=== PATIENT | female | born 1950 | race Caucasian/White ===

== ENCOUNTER 2020-01-31 11:16 | Inpatient (IN) | payer MEDICARE, SELFPAY ==
[2020-01-31] VITALS (14 sets, daily range): BP systolic 97–120; BP diastolic 50–88; PULSE 61–120; RESP 16–18; TEMP 36.4–37.2; O2SAT 90–100; BMI 33.9; BMI 31.4
--- NOTE | 2020-01-31 11:37 | EKG12_ITS ---
Test Reason : AM Blood Pressure : / mmHG Vent. Rate : 073 BPM Atrial Rate : 073 BPM P-R Int : 164 ms QRS Dur : 094 ms QT Int : 388 ms P-R-T Axes : 058 -26 054 degrees QTc Int : 427 ms Normal sinus rhythm Low voltage QRS Borderline ECG When compared with ECG of 31-JAN-2020 11:33, MANUAL COMPARISON REQUIRED, DATA IS UNCONFIRMED Confirmed by YAEL BLEVINS ([id number]), medical transcription editor GIO CARMEN ([id number]) on 02/02/2020 8:00:59 AM Referred By: Talita Humphreys Confirmed By:YAEL BLEVINS
--- NOTE | 2020-01-31 11:37 | RAD_ITS ---
STUDY: X-RAY CHEST REASON FOR EXAM: Female, 68 years old. SOB, GLEZ, sore throat TECHNIQUE: Single AP portable view of the chest. COMPARISON: None. FINDINGS: EKG electrodes are seen. The lungs are clear and expanded. There is no demonstrated pleural abnormality. Normal size heart. Normal mediastinum and morelia. Normal visualized pulmonary arteries. There is atherosclerotic tortuosity of the aortic arch and descending thoracic aorta. Normal visualized thoracic spine. Normal visualized ribs, clavicles, and shoulders. There is no demonstrated abnormality of the visualized soft tissue structures of the upper abdomen. RAD/Chest 1 View (Portable) IMPRESSION: No acute abnormality is seen. Electronically Signed: Isac Taveras, at 12:33 EDT , Service support ,
--- NOTE | 2020-01-31 11:43 | ED.VISSUMM ---
- ER Visit Summary Date of Service: 01/31/20 Chief Complaint: Fatigue and chest pain History of Present Illness: The patient is a 68 F who presents with fatigue and chest pain that has been constant for the past 5 days. Patient states that she has been feeling fatigued over the last 5 days but is starting to feel better. Patient states she was too fatigued to come to the emergency department before today. Patient states she has some intermittent sharp and stabbing pains over her left chest. Patient states that occasionally she feels her heart racing but denies any palpitations or racing heart at the present time. Patient states nothing makes this better or worse. Patient admits to subjective fevers but states her temperature was only 99 at home. Patient also complains of a generalized rash. Physical Examination: Vital signs are stable. Patient is afebrile. Patient is in no acute distress. Oral mucosa is pink and moist. Neck is supple. Trachea is midline. There is no JVD. Heart was irregularly irregular and tachycardic. Lungs are clear and equal bilaterally. Abdomen is soft. Bowel sounds are normal. There is no tenderness. Cranial nerves II through XII are intact. There are no focal motor or sensory deficits. Extremities are intact. There is no calf tenderness or edema. Skin is warm and dry. There is urticarial rash noted over the chest, abdomen, and lower extremities. Test Results: EKG shows atrial fibrillation with a rate of 148. There are no acute ST or T wave changes. There are no prior EKGs available for comparison. Portable chest x-ray was obtained. There is no acute cardiopulmonary process. CBC showed a white blood cell count of 3.9. Basic metabolic profile showed a mild hyponatremia of 133 and a slightly elevated glucose of 110. Urinalysis shows leukocyte Estrace of 500 with 25-50 white blood cells. Troponin was slightly elevated at 0.059. Emergency Department Course and Treatment: Patient was given a bolus of Cardizem and her heart rate improved to the 110s. Patient was given a dose of Bactrim here. Patient was given a dose of Benadryl for her hives. Case was discussed with the hospitalist. She will admit the patient to her service to the PCU. Patient understood and was agreeable with the plan. All questions were answered. Disposition: Admit to hospital Impression: 1. New onset atrial fibrillation 2. Urinary tract infection 3. Elevated troponin This note was generated with Motribe dictation software. It may contain incorrect words, spelling, and punctuation that were not noted in review of the chart prior to signing ED Disposition - Plan for ED Patient: Disposition: Acute Care Hospital [facility] Diagnosis: New onset atrial fibrillation, Elevated troponin, Urinary tract infection Referrals: Genoveva Martell [NON-STAFF] -
[2020-01-31] MEDS: dilTIAZem 25 MG/5 ML Vial IV BOLUS (11:47)
[2020-01-31] MEDS: 0.9% Normal Saline 1,000 ML 1000 ML IV (11:48)
[2020-01-31 12:01] LABS: Absolute Lymphocyte Count 0.62 X10^3/uL (0.83-4.51); Absolute Neutrophil Count 2.8 X10^3/uL (2.0-7.7); Basophil# 0.01 X10^3/uL; Basophil% 0.3 % (0-1); Eosinophil# 0.12 X10^3/uL; Eosinophils% 3.1 % (0-5); Hematocrit 38.7 % (37-47); Hemoglobin 12.9 g/dL (12.0-15.0); Lymphocyte # 0.62 X10^3/ul (4.0); Lymphocyte % 15.9 % (19-41); Mean Corp Hgb Conc 33.3 g/dL (32-36); Mean Corpuscular Hgb 27.9 pg (27.0-32.0); Mean Corpuscular Volume 83.6 fL (81-99); Mean Platelet Vol. 9.8 fl (6.2-12.0); Monocyte% 7.7 % (0-10); NRBC Flagged by Analyzer 0 % (0-5); Neutrophil # 2.79 X10^3/uL (2.7-7.7); Neutrophil % 71.7 % (47-70); POSITIVE MORPHOLOGY YES; Platelet Count 163 K/mm3 (150-450); RBC Distribution Width CV 13.7 % (11.6-14.6); RBC Distribution Width SD 41.9 fl (35.1-43.9); Red Blood Count 4.63 M/mm3 (4.2-5.4); White Blood Count 3.9 K/mm3 (4.4-11.0)
[2020-01-31 12:09] LABS: Differential Indicated SCAN CRITERIA MET
[2020-01-31 12:17] LABS: ALB/GLOB Ratio 0.8 RATIO (0.9-2.4); AST(SGOT) 43 U/L (15-37); Alanine Aminotransfer ALT/SGPT 64 U/L (13-56); Albumin, Serum 3.2 g/dL (3.2-5.0); Alkaline Phosphatase 67 U/L (45-117); Anion Gap 9 (5-15); BUN 13 mg/dL (7-18); BUN/Creat Ratio 18.3 RATIO (10-20); Calcium,Total 8.2 mg/dL (8.5-10.1); Chloride 100 mmol/L (98-107); Creatinine, Serum 0.71 mg/dL (0.55-1.02); EST Glomerular Filtration Rate 87 mL/min (>60); Est Glom Filt Rate - Afr Amer 105 mL/min (>60); Estimated Creatinine Clearance 51.11 ml/min; Globulin 3.9 g/dL (2.2-4.2); Glucose 110 mg/dL (74-106); Potassium 3.8 mmol/L (3.5-5.1); Protein, Total 7.1 g/dL (6.4-8.2); Sodium Level 133 mmol/L (136-145)
[2020-01-31 12:38] LABS: Reactive Lymphocyte 1+
[2020-01-31 12:56] LABS: Color, Urine Yellow (Yellow); Glucose, Dipstick Normal (Normal); Leukocyte Esterase-Dipstick 500 /ul (Negative); Nitrite-Dipstick Negative (Negative); Occult Blood-Urine 25 /ul (Negative); Protein-Dipstick 100 mg/dl (Negative); Specific Gravity, Urine 1.015 (1.002-1.030); Urine Bilirubin Dipstick Negative (Negative); Urine Clarity Sl. Cloudy (Clear); Urine Urobilinogen 1 mg/dl (Normal)
[2020-01-31 12:58] LABS: Ketone-Dipstick 150 mg/dl (Negative)
[2020-01-31 13:01] LABS: Bacteria 2+ /hpf (None Seen); Red Blood Cells-Urine 0-5 SEEN /hpf (0-5); Squamous Epithelial Cells - UA 0-5 SEEN /hpf (5-10); White Blood Cells 25-50 SEEN /hpf (0-5)
[2020-01-31 13:02] LABS: Mucous, Urine 1+ /hpf (<or=2+)
--- NOTE | 2020-01-31 13:36 | HP.PCM_ITS ---
Problem List (1) Urinary tract infection Status: Acute (2) Atrial fibrillation with RVR Status: Acute (3) Depression Status: Chronic (4) HLD (hyperlipidemia) Status: Chronic History of Present Illness Date of Admission: 01/31/20 Chief Complaint: malaise The patient is a 68 year old F with pmhx of HLD and depression who presented to the ER with several complaints of feeling unwell. She began to feel ill at home about 5 days ago. She has been having subjective fevers, nausea, vomiting, inability to tolerate PO intake, cough, sharp left sided chest pain, SOB, and palpitations. She denies recent travel or sick contacts. She came to the ER and was found to have Afib RVR. She denies ever having this. She also appears to have a UTI however does not have dysuria. She has a generalized nonpruritic maculopapular rash on her torso and extremities that she states started after taking tylenol. She was given cardizem in the ER with good improvement in her pulse however with temporary low BP. On exam she is fluctuating between 110s- 120s. 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 Tobacco Use: Non-smoker Alcohol: None Drugs: None - *Family History Maternal History Items: Heart Disease Paternal History Items: Heart Disease Review of Systems Constitutional: Denies: Chills, Fever, Weight Change HEENT: Denies: Head Aches, Sinus Congestion, Sinus Drainage Cardiovascular: Reports: Chest Pain, Palpitations. Denies: Heaviness, Light Headedness, Syncope Respiratory: Reports: Cough, Shortness of Breath, Shortness of breath at rest, Shortness of breath upon exertion. Denies: Sputum production, Wheezing Gastrointestinal: Reports: Diarrhea, Nausea, Vomiting. Denies: Abdominal Pain Genitourinary: Denies: Dysuria, Retention, Urgency Musculoskeletal: Denies: Joint Pain, Joint Tenderness Skin: Denies: Rash, Wounds Neurological: Denies: Numbness, Tingling, Focal weakness Psychiatric: Denies: Anxiety, Depression, Homicidal Ideations, Suicidal Ideations Hematologic/ Lymphatic: Denies: Easy Bruising, Easy Bleeding VTE Information - Inpt Only VTE Present on Admission: No VTE Mechan Device Prophylaxis: None VTE Pharm Prophylaxis ordered?: Yes Patient Problems: Active and Suspected Problems New onset atrial fibrillation (Acute) Elevated troponin (Acute) Urinary tract infection (Acute) Atrial fibrillation with RVR (Acute) - Physical Exam Vitals/I&O's: Vital Signs Temp Pulse Resp BP Pulse Ox 98 F 120 H 18 104/70 100 01/31/20 13:06 01/31/20 13:16 01/31/20 13:16 01/31/20 13:16 01/31/20 13:16 Oxygen Flow Rate (L/min) 2 Oxygen Delivery Method Room Air Weight: 210 lb Body Mass Index (BMI) 33.9 Intake and Output for Last 24 Hours 01/29/20 01/30/20 01/31/20 23:59 23:59 23:59 Intake Total 1000 / 1000 Balance 1000 / 1000 General: Alert, Oriented x3, Cooperative HEENT: Atraumatic, PERRLA, EOMI, Normocephalic Neck: Supple, No JVD, Negative Carotid Bruits Lungs: Clear to auscultation, Normal air movement Cardiovascular: Regular rate, No murmurs Abdomen: Bowel Sounds Present, Soft, Non Tender Extremities: No edema, Capillary Refill Less than 3 Seconds Skin: No rashes, No breakdown Musculoskeletal: No Tenderness to Palpation of Joints or Extremities Neurological: Cranial nerves II-XII grossly intact Psych/Mental Status: Normal Affect, Appropriate, Alert and oriented to time, place, person, mood and affect Microbiology Past 72 Hours 01/31/20 11:40 Mucosa - Nose Influenza Types A,B Direct FA (BRANDIE) - Final 01/31/20 11:40 Mucosa - Nose Rapid RSV (DFA) - Final Laboratory Results 01/31/20 11:40: WBC 3.9 L, RBC 4.63, Hgb 12.9, Hct 38.7, MCV 83.6, MCH 27.9, MCHC 33.3, RDW Std Deviation 41.9, RDW Coeff of Kesha 13.7, Plt Count 163, MPV 9.8, Immature Gran % (Auto) 1.300 H, Neut % (Auto) 71.7 H, Lymph % (Auto) 15.9 L , [place] % (Auto) 7.7, Eos % (Auto) 3.1, Baso % (Auto) 0.3, Absolute Neuts (auto) 2.8, Absolute Lymphs (auto) 0.62 L, Nucleated RBC % 0, Reactive Lymphocytes 1+ 01/31/20 11:40: Sodium 133 L, Potassium 3.8, Chloride 100, Carbon Dioxide 24.0, Anion Gap 9, BUN 13, Creatinine 0.71, Estim Creat Clear Calc 51.11, Est GFR (MDRD) Af Amer 105, Est GFR (MDRD) Non-Af 87, BUN/Creatinine Ratio 18.3, Glucose 110 H, Calcium 8.2 L, Total Bilirubin 0.40, AST 43 H, ALT 64 H, Alkaline Phosphatase 67, Troponin I 0.059 H, Total Protein 7.1, Albumin 3.2, Globulin 3.9, Albumin/Globulin Ratio 0.8 L 01/31/20 12:45: Urine Color Yellow, Urine Clarity Sl. Cloudy, Urine pH 6.0, Ur Specific [place] 1.015, Urine Protein 100 H, Urine Glucose (UA) Normal, Urine Ketones 150 H, Urine Occult Blood 25 H, Urine Nitrite Negative, Urine Bilirubin Negative, Urine Urobilinogen 1 H, Ur Leukocyte Esterase 500 H, Urine RBC 0-5 SEEN, Urine WBC 25-50 SEEN, Ur Squamous Epith Cells 0-5 SEEN, Urine Bacteria 2+, Urine Mucus 1+ Assessment/Plan All Active Problems New onset atrial fibrillation (Acute) Elevated troponin (Acute) Urinary tract infection (Acute) Atrial fibrillation with RVR (Acute) Distal radius fracture, left (Acute) 1. Acute cystitis - rocephin. no fever/leukocytosis. Left shift is present. obtain cx. Flu/rsv neg. CXR negative. 2. Afib RVR new onset - cardizem x 1 in er. start metoprolol. chadvasc2 = 2 female, age. started on therapeutic lovenox. 3. indeterminate trop - cycle. repeat ekg in AM. consider stress test. 4. HLD- statin 5. obesity - dietary eval. 6. Depression/Anxiety - pristiq 7. Maculopapular rash - ? viral exanthem, she has complaints of cough/sob/subjective fevers. pt thinks it is reaction to tylenol however she has been on this in the past with no issues. prn benadryl to see if this helps. 8. Transaminitis - has been using tylenol q4hrs, may be reaction. recheck cmp in AM. hold acetaminophen. DVT ppx: lovenox This patient was seen by Ector Lindsey PA-C under the supervision of Dr. Humphreys.
[2020-01-31] MEDS: DiphenhydrAMINE 50 MG/ML Syringe 25 MG IV (13:44)
[2020-01-31] MEDS: Smz/Tmp Ds Tablet 1 TABLET PO (13:44)
--- NOTE | 2020-01-31 16:39 | ECHOD_ITS ---
Reason For Study: AFIB/FLUTTER Procedure This was a 2D Doppler, Color Flow transthoracic echocardiogram. Exam performed in department. PT in COVID-19 PRECAUTIONS. Left Ventricle Normal size and thickness. The estimated ejection fraction is 65 %. Stage 2 diastolic dysfunction. No regional wall motion abnormalities noted. Right Ventricle Mildly dilated right ventricle. Normal systolic function. Atria The left atrium is moderately enlarged. Normal right atrium. Normal atrial septum. Mitral Valve The mitral valve is structurally normal. No prolapse or stenosis seen. Trivial mitral valve insufficiency. Tricuspid Valve Normal tricuspid valve. Trivial tricuspid valve insufficiency. Right ventricular systolic pressure estimated to be 32 mmHg. Aortic Valve Normal aortic valve. Trisinus/trileaflet aortic valve. Pulmonic Valve Normal pulmonic valve. Great Vessels Normal aortic root. Normal arch. Normal inferior vena cava. Inferior vena cava collapse with sniff. Pericardium/Pleural No pericardial effusion. MMode/2D Measurements & Calculations LVIDd: 4.9 cm IVSd: 1.1 cm Ao root diam: 3.1 cm LVIDs: 3.4 cm LVPWd: 1.1 cm RVDd: 3.7 cm FS: 31.5 % LAV(MOD-bp): 99.5 ml LA A4 area: 27.9 cm2 LA dimension(2D): 4.2 cm LAV(MOD-bp) Indexed: 48.5 ml/m2 LAV(MOD-sp2): 94.0 ml LAV(MOD-sp4): 96.3 ml RA A4 area: 18.1 cm2 Time Measurements MV dec time: 0.18 sec Doppler Measurements & Calculations MV E max eloy: 128.7 cm/sec Lat Peak E' Eloy: 8.0 cm/sec Med Peak E' Eloy: 8.4 cm/sec MV A max eloy: 64.5 cm/sec E/E' lat: 16.1 E/E' med: 15.3 MV E/A: 2.0 Ao V2 max: 141.3 cm/sec LV V1 max: 100.7 cm/sec PA V2 max: 93.5 cm/sec Ao max P.0 mmHg LV V1 max P.1 mmHg Ao V2 mean: 96.2 cm/sec Ao mean P.1 mmHg Ao V2 VTI: 26.1 cm TR max eloy: 257.4 cm/sec TR max P.5 mmHg Interpretation Summary The estimated ejection fraction is 65 %. Stage 2 diastolic dysfunction. Mildly dilated right ventricle. The left atrium is moderately enlarged. Trivial mitral valve insufficiency. Trivial tricuspid valve insufficiency. Right ventricular systolic pressure estimated to be 32 mmHg. There is no comparison study available. Ordering Physician: Taltia Humphreys Referring Physician: Paola Frazier Performed By: Sole Henry, LITA, RVT
[2020-01-31 17:15] LABS: Magnesium 1.9 mg/dL (1.6-2.6); Thyroid Stim Hormone (TSH) 3.19 uIU/mL (0.358-3.74)
[2020-01-31] MEDS: Ceftriaxone 1 GM/50 ML BAG IV (17:49)
[2020-01-31] MEDS: 0.9% Normal Saline 1,000 ML 125 ML IV (17:49)
[2020-01-31] MEDS: 0.9% Saline Lock 10 ML Syringe IV (17:51)
[2020-01-31] MEDS: Enoxaparin 100 MG/ML Syringe SC (17:51)
[2020-01-31] MEDS: Metoprolol Tartrate 25 MG Tablet PO ×2 (17:56→21:45)
[2020-01-31] MEDS: Atorvastatin Calcium 20 MG Tablet PO (21:45)
[2020-02-01] VITALS (11 sets, daily range): BP systolic 93–145; BP diastolic 42–71; PULSE 73–88; RESP 16–18; TEMP 36.6–37.4; O2SAT 92–96
[2020-02-01] MEDS: 0.9% Normal Saline 1,000 ML 125 ML IV ×3 (02:01→17:20)
--- NOTE | 2020-02-01 05:55 | EKG12_ITS ---
Test Reason : Blood Pressure : / mmHG Vent. Rate : 148 BPM Atrial Rate : 133 BPM P-R Int : 000 ms QRS Dur : 070 ms QT Int : 304 ms P-R-T Axes : 000 -42 020 degrees QTc Int : 477 ms Atrial fibrillation Left axis deviation Low voltage QRS Nonspecific ST and T wave abnormality Abnormal ECG Confirmed by FLY PERKINS, HARRIETT ([id number]), production editor ALYSSA MOJICA ([id number]) on 02/02/2020 1:32:00 PM Referred By: Talita Humphreys Confirmed By:HARRIETT BILL MD
[2020-02-01 06:39] LABS: Absolute Lymphocyte Count 0.72 X10^3/uL (0.83-4.51); Absolute Neutrophil Count 1.3 X10^3/uL (2.0-7.7); Basophil# 0.01 X10^3/uL; Basophil% 0.4 % (0-1); Eosinophil# 0.16 X10^3/uL; Eosinophils% 6.5 % (0-5); Hematocrit 32.3 % (37-47); Hemoglobin 10.8 g/dL (12.0-15.0); Lymphocyte # 0.72 X10^3/ul (4.0); Mean Corp Hgb Conc 33.4 g/dL (32-36); Mean Corpuscular Hgb 28.7 pg (27.0-32.0); Mean Corpuscular Volume 85.9 fL (81-99); Mean Platelet Vol. 9.9 fl (6.2-12.0); Monocyte# 0.32 X10^3/uL; Monocyte% 12.9 % (0-10); NRBC Flagged by Analyzer 0 % (0-5); Neutrophil # 1.25 X10^3/uL (2.7-7.7); Neutrophil % 50.4 % (47-70); POSITIVE MORPHOLOGY YES; Platelet Count 141 K/mm3 (150-450); RBC Distribution Width CV 13.7 % (11.6-14.6); RBC Distribution Width SD 43.3 fl (35.1-43.9); Red Blood Count 3.76 M/mm3 (4.2-5.4); White Blood Count 2.5 K/mm3 (4.4-11.0)
[2020-02-01 06:43] LABS: Differential Indicated SCAN CRITERIA MET
[2020-02-01 06:57] LABS: Differential Comment SCANNED
[2020-02-01 06:58] LABS: Platelet Estimate SLT DEC (ADEQ); Reactive Lymphocyte RARE
[2020-02-01 07:11] LABS: ALB/GLOB Ratio 0.7 RATIO (0.9-2.4); AST(SGOT) 35 U/L (15-37); Alanine Aminotransfer ALT/SGPT 53 U/L (13-56); Albumin, Serum 2.5 g/dL (3.2-5.0); Alkaline Phosphatase 57 U/L (45-117); Anion Gap 8 (5-15); BUN 9 mg/dL (7-18); BUN/Creat Ratio 14.7 RATIO (10-20); Calcium,Total 7.7 mg/dL (8.5-10.1); Chloride 106 mmol/L (98-107); Cholesterol 121 mg/dL (200); Creatinine, Serum 0.61 mg/dL (0.55-1.02); EST Glomerular Filtration Rate 103 mL/min (>60); Est Glom Filt Rate - Afr Amer 125 mL/min (>60); Estimated Creatinine Clearance 57.05 ml/min; Globulin 3.4 g/dL (2.2-4.2); Glucose 95 mg/dL (74-106); High Density Lipoprotein 23 mg/dL; Potassium 3.5 mmol/L (3.5-5.1); Protein, Total 5.9 g/dL (6.4-8.2); Sodium Level 138 mmol/L (136-145); Triglycerides 104 mg/dL; Very Low Density Lipoprotein 21 mg/dL (5-40)
--- NOTE | 2020-02-01 07:38 | PN_ITS ---
Patient Problems: Active and Suspected Problems New onset atrial fibrillation (Acute) Elevated troponin (Acute) Urinary tract infection (Acute) Atrial fibrillation with RVR (Acute) Reason for Visit: acute viral syndrome cystitis Subjective: Patient is a 68-year-old lady presented with generalized weakness, cough low- grade fever and fatigue over the past couple of days. She was found to have abnormal urinalysis consistent with cystitis. Was also found to be in A. fib with RVR with elevated troponin Patient complains of having developed new onset cough and difficulty breathing and feeling tired. Repeat chest x-ray ordered and if suggestive of possible viral pneumonia will reorder echo with test which was apparently discontinued Objective: GENERAL: cooperative HEENT: Atraumatic; EYES; Anicteric, Normal Conjunctiva NECK; supple, normal thyroid, RESPIRATORY: Diminished to auscultation CARDIOVASCULAR: Regular S1 S2, GI: soft, normoactive bowel sounds, : No Renal angle tenderness; EXTREMITIES: No edema, no clubbing, MUSCULOSKELETAL: no muscle waisting NEURO: Awake; no lateralizing signs. SKIN: No Rash PSYCH; Flat affect Vitals/I&O's: Vital Signs Temp Pulse Resp BP Pulse Ox 98.8 F 73 16 102/57 L 95 02/01/20 05:35 02/01/20 05:35 02/01/20 05:35 02/01/20 05:35 02/01/20 05:35 Oxygen Flow Rate (L/min) 2 Oxygen Delivery Method Nasal Cannula Weight: 96.6 kg Body Mass Index (BMI) 31.4 Intake and Output for Last 24 Hours 01/30/20 01/31/20 02/01/20 23:59 23:59 23:59 Intake Total 1410 / 2210 1762.5 / 1762.5 Output Total 100 / 100 Balance 1310 / 2110 1762.5 / 1762.5 Microbiology Past 72 Hours 01/31/20 17:41 Mucosa - Nasopharyngeal Respiratory Panel (PCR) - Final 01/31/20 11:40 Mucosa - Nose Influenza Types A,B Direct FA (BRANDIE) - Final 01/31/20 11:40 Mucosa - Nose Rapid RSV (DFA) - Final Laboratory Results 01/31/20 11:40: WBC 3.9 L, RBC 4.63, Hgb 12.9, Hct 38.7, MCV 83.6, MCH 27.9, MCHC 33.3, RDW Std Deviation 41.9, RDW Coeff of Kesha 13.7, Plt Count 163, MPV 9.8, Immature Gran % (Auto) 1.300 H, Neut % (Auto) 71.7 H, Lymph % (Auto) 15.9 L , [place] % (Auto) 7.7, Eos % (Auto) 3.1, Baso % (Auto) 0.3, Absolute Neuts (auto) 2.8, Absolute Lymphs (auto) 0.62 L, Nucleated RBC % 0, Reactive Lymphocytes 1+ 01/31/20 11:40: Sodium 133 L, Potassium 3.8, Chloride 100, Carbon Dioxide 24.0, Anion Gap 9, BUN 13, Creatinine 0.71, Estim Creat Clear Calc 51.11, Est GFR (MDRD) Af Amer 105, Est GFR (MDRD) Non-Af 87, BUN/Creatinine Ratio 18.3, Glucose 110 H, Calcium 8.2 L, Total Bilirubin 0.40, AST 43 H, ALT 64 H, Alkaline Phosphatase 67, Troponin I 0.059 H, Total Protein 7.1, Albumin 3.2, Globulin 3.9, Albumin/Globulin Ratio 0.8 L 01/31/20 11:40: Magnesium 1.9, TSH 3.19 01/31/20 12:45: Urine Color Yellow, Urine Clarity Sl. Cloudy, Urine pH 6.0, Ur Specific [place] 1.015, Urine Protein 100 H, Urine Glucose (UA) Normal, Urine Ketones 150 H, Urine Occult Blood 25 H, Urine Nitrite Negative, Urine Bilirubin Negative, Urine Urobilinogen 1 H, Ur Leukocyte Esterase 500 H, Urine RBC 0-5 SEEN, Urine WBC 25-50 SEEN, Ur Squamous Epith Cells 0-5 SEEN, Urine Bacteria 2+, Urine Mucus 1+ 01/31/20 18:55: Troponin I 0.061 H 01/31/20 21:36: Troponin I 0.059 H 02/01/20 00:58: Troponin I 0.058 H 02/01/20 06:24: WBC 2.5 L, RBC 3.76 L, Hgb 10.8 L, Hct 32.3 L, MCV 85.9, MCH 28.7, MCHC 33.4, RDW Std Deviation 43.3, RDW Coeff of Kesha 13.7, Plt Count 141 L, MPV 9.9, Immature Gran % (Auto) 0.800, Neut % (Auto) 50.4, Lymph % (Auto) 29.0, [place] % (Auto) 12.9 H, Eos % (Auto) 6.5 H, Baso % (Auto) 0.4, Absolute Neuts (auto) 1.3 L, Absolute Lymphs (auto) 0.72 L, Nucleated RBC % 0, Differential Comment SCANNED, Reactive Lymphocytes RARE, Platelet Estimate SLT 02/01/20 06:24: Sodium 138, Potassium 3.5, Chloride 106, Carbon Dioxide 24.0, Anion Gap 8, BUN 9, Creatinine 0.61, Estim Creat Clear Calc 57.05, Est GFR (MDRD) Af Amer 125, Est GFR (MDRD) Non-Af 103, BUN/Creatinine Ratio 14.7, Glucose 95, Calcium 7.7 L, Total Bilirubin 0.30, AST 35, ALT 53, Alkaline Phosphatase 57, Total Protein 5.9 L, Albumin 2.5 L, Globulin 3.4, Albumin/Globulin Ratio 0.7 L, Triglycerides 104, Cholesterol 121, LDL Cholesterol 77, VLDL Cholesterol 21, HDL Cholesterol 23 L Current Medications Acetaminophen (Tylenol) 650 mg PO Q6H PRN PRN PRN Reason: Pain Score 1-10/Temp > 100.7 F Al Hydroxide/Mg Hydroxide (Mylanta Ii) 30 ml PO Q6H PRN PRN PRN Reason: Gastric Burning Albuterol Sulfate (Ventolin Aerosols) 2.5 mg INHALATION Q2H PRN PRN PRN Reason: SOB/Wheezing Atorvastatin Calcium (Lipitor) 20 mg PO QHS [facility] Last Admin: 01/31/20 21:45 Dose: 20 mg Documented by: Citalopram Hydrobromide (Celexa) 40 mg PO DAILY [facility] Dextrose (D50w Syringe) 0 gm IV X1 PRN; Protocol PRN Reason: Hypoglycemia Enoxaparin Sodium (Lovenox) 100 mg 1 mg/kg (100 mg) SC Q12 [facility] Last Admin: 01/31/20 17:51 Dose: 100 mg Documented by: Glucagon () 1 mg IM .X1 PRN PRN Reason: Hypoglycemia Guaifenesin (Robitussin) 20 ml PO Q4H PRN PRN PRN Reason: COUGH Hydralazine HCl (Apresoline Iv) 10 mg IV Q4H PRN PRN PRN Reason: SBP > 160 Sodium Chloride () 1,000 mls @ 125 mls/hr IV .Q8H [facility] Last Admin: 02/01/20 02:01 Dose: 125 mls/hr Documented by: Ceftriaxone Sodium (Rocephin) 1 gm in 50 mls @ 100 mls/hr IV Q24 [facility] Stop: 02/08/20 18:01 Last Infusion: 01/31/20 18:19 Dose: Infused Documented by: Sodium Chloride () 250 mls @ 15 mls/hr IV .[id number] PRN PRN Reason: Saline Flush Sodium Chloride () 250 mls @ 15 mls/hr IV .[id number] PRN PRN Reason: Additional IVPB Infusion Magnesium Hydroxide (Milk Of Magnesia) 30 ml PO DAILY PRN PRN PRN Reason: Constipation Melatonin (Melatonin) 3 mg PO QHS PRN PRN PRN Reason: INSOMNIA Metoprolol Tartrate (Lopressor (Beta Jeovany)) 25 mg PO BID [facility] Last Admin: 01/31/20 21:45 Dose: 25 mg Documented by: Morphine Sulfate () 2 mg IV Q3H PRN PRN PRN Reason: Pain Score 6-10/10 Nitroglycerin (Nitrostat) 0.4 mg SUBLINGUAL Q5M PRN PRN Reason: CARDIAC/CHEST PAIN Nutritional Formula (Lactose Free) (Ensure Enlive) 120 ml PO 4X/DAY [facility] Last Admin: 01/31/20 20:14 Dose: Not Given Documented by: Ondansetron HCl (Zofran) 4 mg IV Q8H PRN PRN PRN Reason: NAUSEA/VOMITING Oxycodone HCl (Oxyir) 5 mg PO Q4H PRN PRN PRN Reason: Pain Score 4-5/10 Prochlorperazine Edisylate (Compazine Iv) 5 mg IV Q4H PRN PRN PRN Reason: Breakthrough Nausea/Vomiting Psyllium Hydrophilic Mucilloid (Metamucil) 1 packet PO DAILY PRN PRN PRN Reason: Constipation Senna/Docusate Sodium (Senokot-S, Enedelia-Colace) 2 tablet PO BID PRN PRN PRN Reason: Constipation Sodium Chloride () 10 - 40 ml IV UD PRN PRN Reason: SALINE FLUSH Last Admin: 01/31/20 17:51 Dose: 10 ml Documented by: Throat Lozenges (Cepacol Sore Throat Lozenge) 1 lozenge MUCOUS MEM Q2H PRN PRN PRN Reason: SORE THROAT Venlafaxine HCl (Effexor Xr) 37.5 mg PO DAILY [facility] Vital Signs/Narrative: Vital Signs Temp Pulse Resp BP Pulse Ox 02/01/20 05:35 98.8 F 73 16 102/57 L 95 Medical Necessity - Tobacco Use Smoking Status: Former smoker Tobacco Use: Non-smoker Assessment/Plan All Active Problems New onset atrial fibrillation (Acute) Elevated troponin (Acute) Urinary tract infection (Acute) Atrial fibrillation with RVR (Acute) Distal radius fracture, left (Acute) Patient is a 68-year-old lady presented with generalized weakness, cough low- grade fever and fatigue over the past couple of days. She was found to have abnormal urinalysis consistent with cystitis. Was also found to be in A. fib with RVR with elevated troponin [facility]. Suspected acute viral syndrome ?Admitted to regular nursing floor currently undergoing evaluation for COVID-19 - Patient complains of having developed new onset cough and difficulty breathing and feeling tired. Repeat chest x-ray ordered and if suggestive of possible viral pneumonia will reorder echo with test which was apparently discontinued 2. Acute cystitis ?Patient started on Rocephin cultures sent 3. A. fib with RVR new onset. -Did receive Cardizem admitted to monitored bed. Patient was also noted to have elevated plan is for patient to undergo evaluation once medically stable 4. Dyslipidemia ~patient is on statin therapy, continued at home dose 5. Obesity with BMI of 31.4 ?Weight loss advised 6. Depression with anxiety ?Patient is on Pristiq 7. DVT prophylaxis - Lovenox Clinical Impression(s) from Imaging Studies Chest X-Ray 01/31/20 11:37 IMPRESSION: No acute abnormality is seen. Electronically Signed: Isac Taveras, at 12:33 EDT , Service support , Inpatient E&M: [id number] [facility] [[email or web address]] Hosp L2
[2020-02-01] MEDS: Ceftriaxone 1 GM/50 ML BAG IV (09:15)
[2020-02-01] MEDS: Citalopram 40 MG TABLET PO (09:19)
[2020-02-01] MEDS: Venlafaxine XR 37.5 MG Capsule PO (09:19)
[2020-02-01] MEDS: Enoxaparin 100 MG/ML Syringe SC ×2 (09:20→22:06)
--- NOTE | 2020-02-01 09:42 | CASEMGMT ---
Social Work Note Per pantograph operator questions, pt has completed HCPOA and LW, hasn't provided copies to [facility] and pt unable to bring in copies. Janette Hamilton HARNESS PULLER, BIOLOGICAL SCIENCE TECHNICIAN FISH
--- NOTE | 2020-02-01 10:24 | RAD_ITS ---
STUDY: X-RAY CHEST REASON FOR EXAM: Female, 68 years old. Covid precautions, cough, new onset of AFIB, TECHNIQUE: Single AP portable view of the chest. COMPARISON: Comparison is made with prior study dated January 31, 2020. FINDINGS: EKG electrodes are seen. Mild increased markings at the lung bases worse in the left lower lobe. These have progressed as compared to prior study. Follow-up is recommended. There is no demonstrated pleural abnormality. Normal size heart. Normal mediastinum and morelia. Normal visualized pulmonary arteries. Normal visualized aortic arch and descending thoracic aorta. There are mild degenerative changes of the visualized thoracic spine. Normal visualized ribs, clavicles, and shoulders. There is no demonstrated abnormality of the visualized soft tissue structures of the upper abdomen. RAD/Chest 1 View (Portable) IMPRESSION: Increased markings at the lung bases worse on the left side as compared to prior study. Follow-up is recommended. Electronically Signed: Isac Taveras, at 12:15 EDT , Service support ,
--- NOTE | 2020-02-01 16:03 | CASEMGMT ---
RN CM Assessment Note Presentation: Acute viral syndrome, possible COVID 19. Respiratory Isolation. Intro role of CM and purpose of RN CM assessment to via home phone. Demographics, PCP and Pharmacy verified. states pt was independent prior to admission. No concerns re: dc voiced at this time. PCP: Dr. Frazier Preferred [facility]acy: [facility] Insurance: [employer] [facility] PPO Prescription Benefit: yes LNOK : Franko Clarke Living Arrangements: Lives in two story home with first floor set up. Per , pt is independent in ADL's, IADL's. Transportation: pt drives, or can drive DME: Cpap only DME use. Has walker cane at home HHC: none Patient DC goals: Home DC PLAN: anticipate home on discharge. Pt is currently on RA. RN CM let know to contact CM for any concerns/needs that may arise through calling to the unit. Naseem MAX RN ACM.
[2020-02-01] MEDS: oxyCODONE 5 MG Tablet PO (17:55)
[2020-02-01] MEDS: Metoprolol Tartrate 25 MG Tablet PO (19:47)
[2020-02-01] MEDS: Atorvastatin Calcium 20 MG Tablet PO (22:06)
--- NOTE | 2020-02-01 23:51 | EKG12_ITS ---
Test Reason : CHEST PRESSURE Blood Pressure : / mmHG Vent. Rate : 079 BPM Atrial Rate : 079 BPM P-R Int : 178 ms QRS Dur : 080 ms QT Int : 370 ms P-R-T Axes : 052 -23 041 degrees QTc Int : 424 ms Normal sinus rhythm Low voltage QRS Nonspecific ST abnormality Abnormal ECG Confirmed by FLY PERKINS, HARRIETT ([id number]), electronic news gathering editor ALYSSA MOJICA ([id number]) on 02/02/2020 1:48:13 PM Referred By: Talita Humphreys Confirmed By:HARRIETT BILL MD
[2020-02-02] VITALS (18 sets, daily range): BP systolic 110–126; BP diastolic 57–79; PULSE 73–115; RESP 16–18; TEMP 36.4–37.7; O2SAT 92–95
--- NOTE | 2020-02-02 00:16 | NURSING ---
Pt c/o increased chest pain and feeling as if she's filling with fluid. fine crackles noted to pt's lung bases. ivf put on hold. EKG in progress. pt refusing PRN medication for chest pain at this time. Nathaniel OLIVIA
[2020-02-02] MEDS: Ibuprofen 400 MG Tablet PO (01:38)
--- NOTE | 2020-02-02 01:52 | EKG12_ITS ---
Test Reason : RHYTHM CHANGE Blood Pressure : / mmHG Vent. Rate : 113 BPM Atrial Rate : 166 BPM P-R Int : 000 ms QRS Dur : 082 ms QT Int : 294 ms P-R-T Axes : 000 -16 060 degrees QTc Int : 403 ms Atrial fibrillation Low voltage QRS Nonspecific ST abnormality , probably digitalis effect Abnormal ECG Confirmed by FLY PERKINS, HARRIETT ([id number]), business editor ALYSSA MOJICA ([id number]) on 02/02/2020 1:47:55 PM Referred By: Talita Humphreys Confirmed By:HARRIETT BILL MD
[2020-02-02] MEDS: 0.9% Saline Lock 10 ML Syringe IV (02:54)
[2020-02-02] MEDS: Metoprolol Tartrate 5 MG/5 ML Vial IV (02:57)
[2020-02-02] MEDS: Metoprolol Tartrate 25 MG Tablet PO ×3 (03:53→21:52)
[2020-02-02 06:26] LABS: Hemoglobin 11.2 g/dL (12.0-15.0); Mean Corp Hgb Conc 32.9 g/dL (32-36); Mean Corpuscular Hgb 28.4 pg (27.0-32.0); Mean Corpuscular Volume 86.3 fL (81-99); Platelet Count 159 K/mm3 (150-450); RBC Distribution Width CV 13.6 % (11.6-14.6); RBC Distribution Width SD 42.9 fl (35.1-43.9); Red Blood Count 3.94 M/mm3 (4.2-5.4); White Blood Count 3.6 K/mm3 (4.4-11.0)
[2020-02-02 06:54] LABS: Anion Gap 8 (5-15); BUN 7 mg/dL (7-18); BUN/Creat Ratio 14.4 RATIO (10-20); Calcium,Total 8.1 mg/dL (8.5-10.1); Chloride 108 mmol/L (98-107); Creatinine, Serum 0.49 mg/dL (0.55-1.02); EST Glomerular Filtration Rate 135 mL/min (>60); Est Glom Filt Rate - Afr Amer 163 mL/min (>60); Estimated Creatinine Clearance 57.05 ml/min; Glucose 96 mg/dL (74-106); Magnesium 1.8 mg/dL (1.6-2.6); Potassium 3.6 mmol/L (3.5-5.1); Sodium Level 139 mmol/L (136-145)
--- NOTE | 2020-02-02 07:58 | CT_ITS ---
STUDY: CT CHEST WITHOUT CONTRAST REASON FOR EXAM: Female, 68 years old. DYSPNEA,COUGH,FEVER,FATIGUE -- ? COVID-19 RADIATION DOSAGE (If Supplied By Facility): CTDIvol = ( 16.67 ) mGy, DLP = ( 591.68 ) mGycm TECHNIQUE: Transaxial imaging was performed without the administration of intravenous contrast material. Multiplanar coronal and sagittal images were reformatted. Individualized dose optimization techniques were used for this CT. COMPARISON: Comparison is made with prior chest radiograph dated February 01, 2020 FINDINGS: There are increased interstitial markings in the upper lobes bilaterally. Small bilateral pleural effusions slightly worse on the right side. Increased markings at the lung bases with areas complex at both lung bases suggestive of bilateral atelectasis and/or infiltrate superimposed on a mild degree of CHF. There are calcifications of the coronary arteries. Mildly enlarged mediastinal lymph nodes. Normal hilar regions. Normal unenhanced pulmonary arteries. There is atherosclerotic calcification of the aortic arch . There are multi-level degenerative changes of the thoracic spine. There is no demonstrated abnormality of the visualized upper abdomen. CT/Chest without Contrast IMPRESSION: Findings suggestive of a mild degree of CHF with superimposed bibasilar atelectasis and/or infiltrates and bilateral pleural effusions slightly worse on the right side. Electronically Signed: Isac Taveras, at 9:10 EDT , Service support ,
--- NOTE | 2020-02-02 08:00 | PN_ITS ---
Patient Problems: Active and Suspected Problems New onset atrial fibrillation (Acute) Elevated troponin (Acute) Urinary tract infection (Acute) Atrial fibrillation with RVR (Acute) Reason for Visit: A. fib with RVR Subjective: Patient went into A. fib with RVR did receive Cardizem converted back to sinus rhythm. CT of the chest obtained in view of persistent cough demonstrated bilateral pleural effusion consistent with congestive heart failure Objective: GENERAL: cooperative HEENT: Atraumatic; EYES; Anicteric, Normal Conjunctiva NECK; supple, normal thyroid, RESPIRATORY: Diminished to auscultation CARDIOVASCULAR: Regular S1 S2, GI: soft, normoactive bowel sounds, : No Renal angle tenderness; EXTREMITIES: No edema, no clubbing, MUSCULOSKELETAL: no muscle waisting NEURO: Awake; no lateralizing signs. SKIN: No Rash PSYCH; Flat affect Vitals/I&O's: Vital Signs Temp Pulse Resp BP Pulse Ox 98.5 F 91 17 126/64 H 94 02/02/20 03:52 02/02/20 07:00 02/02/20 03:52 02/02/20 03:52 02/02/20 07:27 Oxygen Flow Rate (L/min) 3 Oxygen Delivery Method Nasal Cannula Weight: 96.6 kg Body Mass Index (BMI) 31.4 Intake and Output for Last 24 Hours 01/31/20 02/01/20 02/02/20 23:59 23:59 23:59 Intake Total 1410 / 2210 5569.59 / 5569.59 200 / 200 Output Total 100 / 100 Balance 1310 / 2110 5569.59 / 5569.59 200 / 200 Microbiology Past 72 Hours 01/31/20 17:41 Mucosa - Nasopharyngeal Respiratory Panel (PCR) - Final 01/31/20 11:40 Mucosa - Nose Influenza Types A,B Direct FA (BRANDIE) - Final 01/31/20 11:40 Mucosa - Nose Rapid RSV (DFA) - Final Laboratory Results 02/02/20 06:13: WBC 3.6 L, RBC 3.94 L, Hgb 11.2 L, Hct 34.0 L, MCV 86.3, MCH 28.4, MCHC 32.9, RDW Std Deviation 42.9, RDW Coeff of Kesha 13.6, Plt Count 159, MPV 10.0 02/02/20 06:13: Sodium 139, Potassium 3.6, Chloride 108 H, Carbon Dioxide 23.0, Anion Gap 8, BUN 7, Creatinine 0.49 L, Estim Creat Clear Calc 57.05, Est GFR (MDRD) Af Amer 163, Est GFR (MDRD) Non-Af 135, BUN/Creatinine Ratio 14.4, Glucose 96, Calcium 8.1 L, Magnesium 1.8 Current Medications Acetaminophen (Tylenol) 650 mg PO Q6H PRN PRN PRN Reason: Pain Score 1-10/Temp > 100.7 F Al Hydroxide/Mg Hydroxide (Mylanta Ii) 30 ml PO Q6H PRN PRN PRN Reason: Gastric Burning Albuterol Sulfate (Ventolin Aerosols) 2.5 mg INHALATION Q2H PRN PRN PRN Reason: SOB/Wheezing Atorvastatin Calcium (Lipitor) 20 mg PO QHS [facility] Last Admin: 02/01/20 22:06 Dose: 20 mg Documented by: Citalopram Hydrobromide (Celexa) 40 mg PO DAILY [facility] Last Admin: 02/01/20 09:19 Dose: 40 mg Documented by: Dextrose (D50w Syringe) 0 gm IV X1 PRN; Protocol PRN Reason: Hypoglycemia Enoxaparin Sodium (Lovenox) 100 mg 1 mg/kg (100 mg) SC Q12 [facility] Last Admin: 02/01/20 22:06 Dose: 100 mg Documented by: Glucagon () 1 mg IM .X1 PRN PRN Reason: Hypoglycemia Guaifenesin (Robitussin) 20 ml PO Q4H PRN PRN PRN Reason: COUGH Hydralazine HCl (Apresoline Iv) 10 mg IV Q4H PRN PRN PRN Reason: SBP > 160 Ceftriaxone Sodium (Rocephin) 1 gm in 50 mls @ 100 mls/hr IV Q24 [facility] Stop: 02/08/20 18:01 Last Infusion: 02/01/20 10:03 Dose: Infused Documented by: Sodium Chloride () 250 mls @ 15 mls/hr IV .[id number] PRN PRN Reason: Saline Flush Sodium Chloride () 250 mls @ 15 mls/hr IV .[id number] PRN PRN Reason: Additional IVPB Infusion Magnesium Hydroxide (Milk Of Magnesia) 30 ml PO DAILY PRN PRN PRN Reason: Constipation Melatonin (Melatonin) 3 mg PO QHS PRN PRN PRN Reason: INSOMNIA Metoprolol Tartrate (Lopressor (Beta Jeovany)) 25 mg PO BID [facility] Last Admin: 02/01/20 19:47 Dose: 25 mg Documented by: Morphine Sulfate () 2 mg IV Q3H PRN PRN PRN Reason: Pain Score 6-10/10 Nitroglycerin (Nitrostat) 0.4 mg SUBLINGUAL Q5M PRN PRN Reason: CARDIAC/CHEST PAIN Nutritional Formula (Lactose Free) (Ensure Enlive) 120 ml PO 4X/DAY [facility] Last Admin: 02/01/20 21:13 Dose: Not Given Documented by: Ondansetron HCl (Zofran) 4 mg IV Q8H PRN PRN PRN Reason: NAUSEA/VOMITING Oxycodone HCl (Oxyir) 5 mg PO Q4H PRN PRN PRN Reason: Pain Score 4-5/10 Last Admin: 02/01/20 17:55 Dose: 5 mg Documented by: Prochlorperazine Edisylate (Compazine Iv) 5 mg IV Q4H PRN PRN PRN Reason: Breakthrough Nausea/Vomiting Psyllium Hydrophilic Mucilloid (Metamucil) 1 packet PO DAILY PRN PRN PRN Reason: Constipation Senna/Docusate Sodium (Senokot-S, Enedelia-Colace) 2 tablet PO BID PRN PRN PRN Reason: Constipation Sodium Chloride () 10 - 40 ml IV UD PRN PRN Reason: SALINE FLUSH Last Admin: 02/02/20 02:54 Dose: 10 ml Documented by: Throat Lozenges (Cepacol Sore Throat Lozenge) 1 lozenge MUCOUS MEM Q2H PRN PRN PRN Reason: SORE THROAT Venlafaxine HCl (Effexor Xr) 37.5 mg PO DAILY [facility] Last Admin: 02/01/20 09:19 Dose: 37.5 mg Documented by: STROKE Vital Signs/Narrative: Vital Signs Pulse Pulse Ox 02/02/20 07:27 94 02/02/20 07:00 91 02/02/20 04:06 99 Medical Necessity - Tobacco Use Smoking Status: Former smoker Tobacco Use: Non-smoker Assessment/Plan All Active Problems New onset atrial fibrillation (Acute) Elevated troponin (Acute) Urinary tract infection (Acute) Atrial fibrillation with RVR (Acute) Distal radius fracture, left (Acute) Patient is a 68-year-old lady presented with generalized weakness, cough low- grade fever and fatigue over the past couple of days. She was found to have abnormal urinalysis consistent with cystitis. Was also found to be in A. fib with RVR with elevated troponin admitted to the [facility] floor 1. Suspected acute viral syndrome ?Admitted to regular nursing floor currently undergoing evaluation for COVID-19 - Patient complains of having developed new onset cough and difficulty breathing and feeling tired. Repeat chest x-ray ordered and if suggestive of possible viral pneumonia will reorder echo with test which was apparently discontinued -02/02/2020 patient was not approved for COVID 19 testing since he did not meet criteria: Patient isolation subsequently discontinued transferred to the progressive care unit 2. Acute cystitis ?Patient started on Rocephin cultures sent ?02/02/2020: Urine cultures came back for only mixed organisms antibiotics subsequently discontinued 3. A. fib with RVR new onset. -Did receive Cardizem admitted to monitored bed. Patient was also noted to have elevated plan is for patient to undergo evaluation once medically stable 4. Acute congestive heart failure with preserved ejection fraction ?Echo obtained demonstrated EF of 65% patient started on Lasix with subsequent monitoring of electrolyte 4. Dyslipidemia ~patient is on statin therapy, continued at home dose 5. Obesity with BMI of 31.4 ?Weight loss advised 6. Depression with anxiety ?Patient is on Pristiq 7. DVT prophylaxis - Lovenox Clinical Impression(s) from Imaging Studies Chest X-Ray 02/01/20 10:24 IMPRESSION: Increased markings at the lung bases worse on the left side as compared to prior study. Follow-up is recommended. Electronically Signed: Isac Taveras, at 12:15 EDT , Service support , Chest CT 02/02/20 07:58 IMPRESSION: Findings suggestive of a mild degree of CHF with superimposed bibasilar atelectasis and/or infiltrates and bilateral pleural effusions slightly worse on the right side. Electronically Signed: Isac Taveras, at 9:10 EDT , Service support , Inpatient E&M: [id number] Subs Hosp L2
[2020-02-02] MEDS: Venlafaxine XR 37.5 MG Capsule PO (09:31)
[2020-02-02] MEDS: Citalopram 40 MG TABLET PO (09:31)
[2020-02-02] MEDS: Enoxaparin 100 MG/ML Syringe SC ×2 (09:33→21:52)
[2020-02-02] MEDS: Ceftriaxone 1 GM/50 ML BAG IV (09:35)
--- NOTE | 2020-02-02 10:51 | NURSING ---
pt transported to PCU 109 at this time via bed.
[2020-02-02] MEDS: Furosemide 40 MG/4 ML Vial IV ×2 (11:14→17:03)
--- NOTE | 2020-02-02 14:46 | EKG12_ITS ---
Test Reason : RHTYHM CHANGE Blood Pressure : / mmHG Vent. Rate : 073 BPM Atrial Rate : 073 BPM P-R Int : 166 ms QRS Dur : 092 ms QT Int : 390 ms P-R-T Axes : 040 -36 042 degrees QTc Int : 429 ms Normal sinus rhythm Left axis deviation Inferior infarct , age undetermined Abnormal ECG When compared with ECG of 02-FEB-2020 02:26, Sinus rhythm has replaced Atrial fibrillation Vent. rate has decreased BY 40 BPM Confirmed by FLY PERKINS, HARRIETT ([id number]), market editor YOUSIF QUEZADA ([id number]) on 02/07/2020 9:31:23 AM Referred By: Talita Humphreys Confirmed By:HARRIETT BILL MD
[2020-02-02] MEDS: Atorvastatin Calcium 20 MG Tablet PO (21:51)
[2020-02-02] MEDS: MELATONIN 3 MG TABLET PO (21:51)
[2020-02-03] VITALS (15 sets, daily range): BP systolic 106–127; BP diastolic 61–84; PULSE 58–163; RESP 16–18; TEMP 36.5–36.9; O2SAT 92–99
--- NOTE | 2020-02-03 05:40 | EKG12_ITS ---
Test Reason : AM Blood Pressure : / mmHG Vent. Rate : 076 BPM Atrial Rate : 060 BPM P-R Int : 174 ms QRS Dur : 092 ms QT Int : 420 ms P-R-T Axes : 039 -15 054 degrees QTc Int : 472 ms Normal sinus rhythm Low voltage QRS Borderline ECG When compared with ECG of 02-FEB-2020 15:28, MANUAL COMPARISON REQUIRED, DATA IS UNCONFIRMED Confirmed by FLY PERKINS, HARRIETT ([id number]), newspaper editor managing YOUSIF QUEZADA ([id number]) on 02/07/2020 9:31:07 AM Referred By: Talita Humphreys Confirmed By:HARRIETT BILL MD
--- NOTE | 2020-02-03 05:44 | NURSING ---
pt was laying in bed and started feeling her heart flutter and became sob, on the ekg pt was having pvc's. ekg completed, showed nsr
[2020-02-03 06:02] LABS: Hematocrit 33.4 % (37-47); Mean Corp Hgb Conc 32.9 g/dL (32-36); Mean Corpuscular Hgb 27.9 pg (27.0-32.0); Mean Corpuscular Volume 84.8 fL (81-99); Mean Platelet Vol. 9.8 fl (6.2-12.0); Platelet Count 193 K/mm3 (150-450); RBC Distribution Width CV 13.3 % (11.6-14.6); RBC Distribution Width SD 41.5 fl (35.1-43.9); Red Blood Count 3.94 M/mm3 (4.2-5.4); White Blood Count 3.7 K/mm3 (4.4-11.0)
--- NOTE | 2020-02-03 06:27 | NURSING ---
pt went into afib rvr hr 160-[address]. sánchez notified, during the call she wet back into a nsr hr 60's. mag and phosphate lab ordered in addition to her am labs. pt was up in the restroom doing her hair when she went into afib. was not having any symptoms. was told to lay back down in the bed. denied sob
[2020-02-03 06:31] LABS: Anion Gap 8 (5-15); BUN 8 mg/dL (7-18); BUN/Creat Ratio 13.1 RATIO (10-20); Calcium,Total 8.1 mg/dL (8.5-10.1); Chloride 101 mmol/L (98-107); Creatinine, Serum 0.61 mg/dL (0.55-1.02); EST Glomerular Filtration Rate 103 mL/min (>60); Est Glom Filt Rate - Afr Amer 125 mL/min (>60); Estimated Creatinine Clearance 57.05 ml/min; Glucose 105 mg/dL (74-106); Potassium 3.2 mmol/L (3.5-5.1); Sodium Level 138 mmol/L (136-145)
[2020-02-03 06:45] LABS: Magnesium 1.7 mg/dL (1.6-2.6); Phosphorus 3.8 mg/dL (2.5-4.9)
[2020-02-03] MEDS: Magnesium Oxide 400 MG Tablet PO (07:31)
[2020-02-03] MEDS: Metoprolol Tartrate 25 MG Tablet PO (07:33)
--- NOTE | 2020-02-03 07:48 | PCM.PN.HOSP ---
Patient Problems: Active and Suspected Problems New onset atrial fibrillation (Acute) Elevated troponin (Acute) Urinary tract infection (Acute) Atrial fibrillation with RVR (Acute) Reason for Visit: A. fib/CHF Subjective: Consultation was placed to cardiology in view of patient flipping in and out of A. fib Objective: GENERAL: cooperative HEENT: Atraumatic; EYES; Anicteric, Normal Conjunctiva NECK; supple, normal thyroid, RESPIRATORY: Diminished to auscultation CARDIOVASCULAR: Regular S1 S2, GI: soft, normoactive bowel sounds, : No Renal angle tenderness; EXTREMITIES: No edema, no clubbing, MUSCULOSKELETAL: no muscle waisting NEURO: Awake; no lateralizing signs. SKIN: No Rash PSYCH; Flat affect Vitals/I&O's: Vital Signs Temp Pulse Resp BP Pulse Ox 98.1 F 117 H 16 124/73 H 92 02/03/20 04:47 02/03/20 07:33 02/03/20 04:47 02/03/20 07:33 02/03/20 04:47 Oxygen Flow Rate (L/min) 2 Oxygen Delivery Method Nasal Cannula Weight: 96.6 kg Body Mass Index (BMI) 31.4 Intake and Output for Last 24 Hours 02/01/20 02/02/20 02/03/20 23:59 23:59 23:59 Intake Total 5569.59 / 5569.59 250 / 450 200 / 200 Output Total 2000 / 3600 2500 / 2500 Balance 5569.59 / 5569.59 -1750 / -3150 -2300 / -2300 Microbiology Past 72 Hours 01/31/20 12:45 Urine, Clean Catch Urine Culture - Final Mixed Gram Pos & Gram Neg Org 01/31/20 17:41 Mucosa - Nasopharyngeal Respiratory Panel (PCR) - Final 01/31/20 11:40 Mucosa - Nose Influenza Types A,B Direct FA (BRANDIE) - Final 01/31/20 11:40 Mucosa - Nose Rapid RSV (DFA) - Final Laboratory Results 02/03/20 05:45: WBC 3.7 L, RBC 3.94 L, Hgb 11.0 L, Hct 33.4 L, MCV 84.8, MCH 27.9, MCHC 32.9, RDW Std Deviation 41.5, RDW Coeff of Kesha 13.3, Plt Count 193, MPV 9.8 02/03/20 05:45: Sodium 138, Potassium 3.2 L, Chloride 101, Carbon Dioxide 29.0, Anion Gap 8, BUN 8, Creatinine 0.61, Estim Creat Clear Calc 57.05, Est GFR (MDRD) Af Amer 125, Est GFR (MDRD) Non-Af 103, BUN/Creatinine Ratio 13.1, Glucose 105, Calcium 8.1 L 02/03/20 05:45: Phosphorus 3.8, Magnesium 1.7 Current Medications Acetaminophen (Tylenol) 650 mg PO Q6H PRN PRN PRN Reason: Pain Score 1-10/Temp > 100.7 F Al Hydroxide/Mg Hydroxide (Mylanta Ii) 30 ml PO Q6H PRN PRN PRN Reason: Gastric Burning Albuterol Sulfate (Ventolin Aerosols) 2.5 mg INHALATION Q2H PRN PRN PRN Reason: SOB/Wheezing Atorvastatin Calcium (Lipitor) 20 mg PO QHS [facility] Last Admin: 02/02/20 21:51 Dose: 20 mg Documented by: Citalopram Hydrobromide (Celexa) 40 mg PO DAILY [facility] Last Admin: 02/02/20 09:31 Dose: 40 mg Documented by: Dextrose (D50w Syringe) 0 gm IV X1 PRN; Protocol PRN Reason: Hypoglycemia Enoxaparin Sodium (Lovenox) 100 mg 1 mg/kg (100 mg) SC Q12 [facility] Last Admin: 02/02/20 21:52 Dose: 100 mg Documented by: Furosemide (Lasix) 40 mg IV BID@1000,1800 [facility] Last Admin: 02/02/20 17:03 Dose: 40 mg Documented by: Glucagon () 1 mg IM .X1 PRN PRN Reason: Hypoglycemia Guaifenesin (Robitussin) 20 ml PO Q4H PRN PRN PRN Reason: COUGH Hydralazine HCl (Apresoline Iv) 10 mg IV Q4H PRN PRN PRN Reason: SBP > 160 Ceftriaxone Sodium (Rocephin) 1 gm in 50 mls @ 100 mls/hr IV Q24 [facility] Stop: 02/08/20 18:01 Last Infusion: 02/02/20 10:07 Dose: Infused Documented by: Sodium Chloride () 250 mls @ 15 mls/hr IV .[id number] PRN PRN Reason: Saline Flush Sodium Chloride () 250 mls @ 15 mls/hr IV .[id number] PRN PRN Reason: Additional IVPB Infusion Magnesium Hydroxide (Milk Of Magnesia) 30 ml PO DAILY PRN PRN PRN Reason: Constipation Melatonin (Melatonin) 3 mg PO QHS PRN PRN PRN Reason: INSOMNIA Last Admin: 02/02/20 21:51 Dose: 3 mg Documented by: Metoprolol Tartrate (Lopressor (Beta Jeovany)) 25 mg PO BID [facility] Last Admin: 02/02/20 21:52 Dose: 25 mg Documented by: Morphine Sulfate () 2 mg IV Q3H PRN PRN PRN Reason: Pain Score 6-10/10 Nitroglycerin (Nitrostat) 0.4 mg SUBLINGUAL Q5M PRN PRN Reason: CARDIAC/CHEST PAIN Nutritional Formula (Lactose Free) (Ensure Enlive) 120 ml PO 4X/DAY [facility] Last Admin: 02/02/20 21:41 Dose: Not Given Documented by: Ondansetron HCl (Zofran) 4 mg IV Q8H PRN PRN PRN Reason: NAUSEA/VOMITING Oxycodone HCl (Oxyir) 5 mg PO Q4H PRN PRN PRN Reason: Pain Score 4-5/10 Last Admin: 02/01/20 17:55 Dose: 5 mg Documented by: Potassium Chloride (K-Dur) 40 meq PO X1 [facility] Stop: 02/03/20 07:48 Potassium Chloride (K-Dur) [facility] Prochlorperazine Edisylate (Compazine Iv) 5 mg IV Q4H PRN PRN PRN Reason: Breakthrough Nausea/Vomiting Psyllium Hydrophilic Mucilloid (Metamucil) 1 packet PO DAILY PRN PRN PRN Reason: Constipation Senna/Docusate Sodium (Senokot-S, Enedelia-Colace) 2 tablet PO BID PRN PRN PRN Reason: Constipation Sodium Chloride () 10 - 40 ml IV UD PRN PRN Reason: SALINE FLUSH Last Admin: 02/02/20 02:54 Dose: 10 ml Documented by: Throat Lozenges (Cepacol Sore Throat Lozenge) 1 lozenge MUCOUS MEM Q2H PRN PRN PRN Reason: SORE THROAT Venlafaxine HCl (Effexor Xr) 37.5 mg PO DAILY [facility] Last Admin: 02/02/20 09:31 Dose: 37.5 mg Documented by: STROKE Vital Signs/Narrative: Vital Signs Temp Pulse Resp BP Pulse Ox 02/03/20 07:33 117 H 124/73 H 02/03/20 07:04 70 02/03/20 06:20 163 H 02/03/20 05:30 79 02/03/20 04:47 98.1 F 68 16 106/84 H 92 Medical Necessity - Tobacco Use Smoking Status: Former smoker Tobacco Use: Non-smoker Assessment/Plan All Active Problems New onset atrial fibrillation (Acute) Elevated troponin (Acute) Urinary tract infection (Acute) Atrial fibrillation with RVR (Acute) Distal radius fracture, left (Acute) Patient is a 68-year-old lady presented with generalized weakness, cough low-grade fever and fatigue over the past couple of days. She was found to have abnormal urinalysis consistent with cystitis. Was also found to be in A. fib with RVR with elevated troponin admitted to the [facility] floor 1. Suspected acute viral syndrome ?Admitted to regular nursing floor currently undergoing evaluation for COVID-19 - Patient complains of having developed new onset cough and difficulty breathing and feeling tired. Repeat chest x-ray ordered and if suggestive of possible viral pneumonia will reorder echo with test which was apparently discontinued -02/02/2020 patient was not approved for COVID 19 testing since he did not meet criteria: Patient isolation subsequently discontinued transferred to the progressive care unit 2. Acute cystitis ?Patient started on Rocephin cultures sent ?02/02/2020: Urine cultures came back for only mixed organisms antibiotics subsequently discontinued 3. A. fib with RVR new onset. -Did receive Cardizem admitted to monitored bed. Patient was also noted to have elevated plan is for patient to undergo evaluation once medically stable -02/03/2020 patient flipping in and out of A. fib consultation was placed to cardiology patient was seen by Dr. Laird's notes and recommendations reviewed. 4. Acute congestive heart failure with preserved ejection fraction ?Echo obtained demonstrated EF of 65% patient started on Lasix with subsequent monitoring of electrolyte 4. Dyslipidemia ~patient is on statin therapy, continued at home dose 5. Obesity with BMI of 31.4 ?Weight loss advised 6. Depression with anxiety ?Patient is on Pristiq 7. DVT prophylaxis - Lovenox Inpatient E&M: [id number] [facility] Hosp L2
--- NOTE | 2020-02-03 08:00 | STEWCON_ITS ---
Reason For Study: Atrial Fibrillation Stress Results Protocol: Lester Protocol WITH DEFINITY Maximum Predicted HR: 153 bpm Target HR: 130 bpm % Maximum Predicted HR: 99 % DurationHeart Rate Stage (mm:ss) (bpm) BP Comment Baseline 99 128/72No Chest Pain; 7 ML Diluted Definity Lester Protocol Stage I 3:00 123 134/70Mild Chest Twinges, Mild Dyspnea Lester Protocol Stage II 2:00 151 160/64Mild Chest Twinges; Moderate Dyspnea Recovery 115 114/72No Chest Pain Stress Duration: 5:00 mm:ss Maximum Stress HR: 151 bpm METS: 7 Baseline Echocardiogram Findings The estimated ejection fraction is 65 %. Stress Echo Wall motion Data Resting WM Intermediate WM Stress WM Resting Wall Motion Wall Motion Stress No regional wall motion No regional wall motion abnormalities noted. abnormalities noted. EKG Data Atrial fibrilation with contorlled ventricular response. The patient exercised according to the regular Lester protocol for a total duration of 5:00. The maximum heart rate attained was 157 beats per minute. This was 102% of maximum predicted heart rate. The patient exercised into stage 2 of the Lester protocol. During stress, there were no ST or T wave changes noted to suggest ischemia. No clinical angina was noted. Interpretation Summary The estimated ejection fraction is 65 %. Normal, adequate, treadmill echocardiogram. Negative for ischemia by EKG and echocardiographic criteria. No anginal symptoms noted. Baseline atrial fibrillation which remained present throughout the test. Below average exercise capacity for age. Test terminated due to dyspnea. No chest pain or anginal symptoms noted. No additional arrhythmias noted. Final LVEF is 75%. Appropriate blood pressure response to exercise. Decrease sensitivity due to poor echo windows requiring Definity agent. Patient tolerated procedure well. No complications. The study was technically difficult. Contrast injection was performed. Ordering Physician: Ramez Laird Referring Physician: Paola Frazier Performed By: Nicole Butler, RDCS, RVT
--- NOTE | 2020-02-03 08:41 | CON.PCM_ITS ---
Problem List (1) New onset atrial fibrillation Status: Acute (2) Elevated troponin Status: Acute (3) Atrial fibrillation with RVR Status: Acute (4) HLD (hyperlipidemia) Status: Chronic Reason for Consult Date of Consultation: 02/03/20 Reason for Consultation: Paroxysmal atrial fibrillation of new onset, hyperlipidemia History of Present Illness: The patient is a 68 year old F, previous smoker of approximately 1-1/2 packs/day for 20 years, quit several years ago, nonhypertensive, nondiabetic, with known hypercholesterolemia. Patient was in good health up until the last several weeks when she developed a fever, productive cough, but no chills. She has slowly been convalescing, and improving, but developed palpitations on the day of admission with associated chest pain and pressure. She was found to be in atrial fibrillation with rapid ventricular response and was admitted for observation. The patient spontaneously converted back to normal sinus rhythm. She underwent a 2D echo with Doppler on 02/01/2020 which demonstrated intact LV function, and normal pulmonary pressures. Patient was treated with beta-gina therapy. Her EKG on admission showed atrial fibrillation with rapid ventricular response, incomplete right bundle branch block and low voltage. Her EKG subsequent to converting back to normal sinus rhythm showed normal sinus rhythm with low voltage, incomplete right bundle branch block, no previous myocardial infarction. She underwent a CT scan which demonstrated small bilateral pleural effusions possibly as result of her recent viral illness. Her cardiogram showed no significant pericardial effusion. Patient has had several episodes of paroxysmal atrial fibrillation while admitted and a consult was requested. Prior to her recent illness she denied any exertional chest pain, angina, shortness of breath or dyspnea on exertion. She states she had a catheteri zation about 20 years ago and was told that her arteries were normal. She has never had a stress test. She has never had a TIA or CVA and is not on anticoagulation therapy. For the most part the patient can feel her heart beating, but this morning she was in atrial fibrillation and was completely unaware of it.] Past Medical History Allergies/Adverse Reactions: Allergies Penicillins Allergy (Verified 01/31/20 11:17) Shortness of breath Home Medications: Ambulatory Orders Medication Instructions Recorded Desvenlafaxine Succinate [Pristiq] 50 mg PO DAILY 08/10/13 Citalopram Hydrobromide 40 mg PO DAILY 01/31/20 [Citalopram HBr] Rosuvastatin Calcium [Crestor] 10 mg PO QHS 01/31/20 Past Medical History (Chronic Problems): Chronic Problems Depression (Chronic) HLD (hyperlipidemia) (Chronic) Surgical History: hysterectomy, - - ankle surgery Psychiatric History: Anxiety, Depression HOSPITAL MEDICAL ASSISTANT History: No pertinent HOSPITAL MEDICAL ASSISTANT history - *Family History Maternal History Items: Heart Disease Paternal History Items: Heart Disease Lives: Spouse/ Significant Other Smoking Status: Former smoker Tobacco Use: Non-smoker Alcohol: None Drugs: None Review of Systems - Review of Systems General: Denies: Fever, Night Sweats, Fatigue Cardiovascular: Reports: Chest Discomfort, Chest Discomfort at Rest, Pa lpitations. Denies: Shortness of Breath, Orthopnea, PND, Peripheral Edema, Lightheadedness, Dizziness, Near Syncope, Syncope Respiratory: Denies: Cough, Sputum Production, Hemoptysis Gastrointestinal: Denies: Hematemesis, Hematochezia, Melena Genitourinary: Denies: Dysuria, Hematuria Skin: Denies: Rash Subjectve: Patient laying in bed, no acute distress. Objective: Vital Signs Temp Pulse Resp BP Pulse Ox 98.1 F 117 H 16 124/73 H 94 02/03/20 04:47 02/03/20 07:33 02/03/20 04:47 02/03/20 07:33 02/03/20 06:46 Oxygen Flow Rate (L/min) 2 Oxygen Delivery Method Nasal Cannula Weight: 212 lb 15.465 oz Body Mass Index (BMI) 31.4 Intake and Output for Last 24 Hours 02/01/20 02/02/20 02/03/20 23:59 23:59 23:59 Intake Total 5569.59 / 5569.59 250 / 450 200 / 200 Output Total 2000 / 3600 2500 / 2500 Balance 5569.59 / 5569.59 -1750 / -3150 -2300 / -2300 General: Awake, Alert, Oriented x 3 HEENT: PERRL, EOMI, Sclera Non Icteric Neck: Supple, Good ROM, No Lymph Node Enlargement Lungs: Clear to auscultation Cardiovascular: Regular Rhythm, Normal S1, Normal S2, No Murmurs, No Rubs, No Gallops Vascular: No Carotid Bruits, Normal Femoral Pulses, Normal Radial Pulses, Normal Dorsalis Pedal Pulse, Normal Posterior Tibial Pulses Abdomen: Bowel Sounds Present, Soft, Non Tender, No HSM, No Organomegaly Extremities: No Cyanosis, No Clubbing, No edema Neurological: No Focal Motor or Sensory Deficit 02/03/20 05:45: WBC 3.7 L, RBC 3.94 L, Hgb 11.0 L, Hct 33.4 L, MCV 84.8, MCH 27.9, MCHC 32.9, Plt Count 193, MPV 9.8 02/03/20 05:45: Sodium 138, Potassium 3.2 L, Chloride 101, Carbon Dioxide 29.0, Anion Gap 8, BUN 8, Creatinine 0.61, Est GFR (MDRD) Af Amer 125, Est GFR (MDRD) Non-Af 103, BUN/Creatinine Ratio 13.1, Glucose 105, Calcium 8.1 L 02/03/20 05:45: Phosphorus 3.8, Magnesium 1.7 Rhythm: EKG: ECHO: The estimated ejection fraction is 65 %. Stage 2 diastolic dysfunction. Mildly dilated right ventricle. The left atrium is moderately enlarged. Trivial mitral valve insufficiency. Trivial tricuspid valve insufficiency. Right ventricular systolic pressure estimated to be 32 mmHg. There is no comparison study available. Stress Test: Cardiac Cath: PCI: CT Surgery: Holter monitor: EPS: PPM: CXR: Chest CT Scan: Assessment/Plan 1. Paroxysmal atrial fibrillation: The patient has had a recent viral illness, with newly discovered bilateral pleural effusions which may be a result of her recent viral illness. In addition she has had several episodes of palpitations and paroxysmal atrial fibrillation with rapid ventricular response. Her 2D echo with Doppler is as follows from this admission: The estimated ejection fraction is 65 %. Stage 2 diastolic dysfunction. Mildly dilated right ventricle. The left atrium is moderately enlarged. Trivial mitral valve insufficiency. Trivial tricuspid valve insufficiency. Right ventricular systolic pressure estimated to be 32 mmHg. There is no comparison study available. I reviewed her CAT scan which demonstrates small bilateral pleural effusions and minimal pulmonary edema. No pulmonary embolism noted. I have recommended that she have her potassium and magnesium corrected this morning with 40 mg of magnesium oxide x1 now followed by 40 mEq of potassium x1 now. At this point I would recommend the patient undergo a treadmill echocardiogram to evaluate for possible coronary ischemia as a result of her age, long smoking history, and long interval between her last catheterization. If her stress test is negative, we will hold off on a diagnostic coronary angiogram. Her peak troponin during her atrial fibrillation events was 0.059. If her stress test is abnormal, she will require diagnostic coronary angiogram. As the patient is unable to detect when she goes in and out of atrial fibrillation on several occasions, she may require at least short-term anticoagulation therapy with Eliquis per protocol. In addition I would recommend discontinuation of her IV Lasix, and switching her to Lasix 20 mg p.o. daily, potassium chloride 10 mEq daily, and increasing her metoprolol to 50 mg p.o. twice daily. 2. Hyperlipidemia: Her LDL and HDL cholesterol are fairly well controlled. Continue present management. 3. Thank you very much for the opportunity to participate in the cardiac care of your patient. Consultation time took place between 8 AM and 8:50 AM. Inpatient E&M: 60778 Init Hosp L2
[2020-02-03] MEDS: Furosemide 20 MG Tablet PO (09:42)
[2020-02-03] MEDS: Metoprolol Tartrate 50 MG Tablet PO ×2 (09:42→21:13)
[2020-02-03] MEDS: Ceftriaxone 1 GM/50 ML BAG IV (09:46)
[2020-02-03] MEDS: Amiodarone 200 MG Tablet 400 MG PO ×2 (10:06→21:13)
[2020-02-03] MEDS: Citalopram 40 MG TABLET PO (10:06)
[2020-02-03] MEDS: Venlafaxine XR 37.5 MG Capsule PO (10:06)
[2020-02-03] MEDS: Enoxaparin 100 MG/ML Syringe SC ×2 (10:34→21:13)
[2020-02-03] MEDS: Atorvastatin Calcium 20 MG Tablet PO (21:13)
[2020-02-04 03:00] VITALS: PULSE 53
[2020-02-04 03:03] VITALS: BP 122/65; PULSE 57; RESP 16; TEMP 36.6; O2SAT 95
[2020-02-04 04:30] VITALS: BP 127/66; PULSE 56; RESP 16; TEMP 36.7; O2SAT 96
[2020-02-04] MEDS: Amiodarone 200 MG Tablet 400 MG PO (05:26)
[2020-02-04 06:07] LABS: Hematocrit 34.8 % (37-47); Hemoglobin 11.5 g/dL (12.0-15.0); Mean Corpuscular Hgb 28.2 pg (27.0-32.0); Mean Corpuscular Volume 85.3 fL (81-99); Mean Platelet Vol. 10.3 fl (6.2-12.0); Platelet Count 240 K/mm3 (150-450); RBC Distribution Width CV 13.4 % (11.6-14.6); RBC Distribution Width SD 41.7 fl (35.1-43.9); Red Blood Count 4.08 M/mm3 (4.2-5.4); White Blood Count 4.2 K/mm3 (4.4-11.0)
[2020-02-04 06:28] LABS: Anion Gap 7 (5-15); BUN 9 mg/dL (7-18); BUN/Creat Ratio 14.5 RATIO (10-20); Calcium,Total 8.4 mg/dL (8.5-10.1); Chloride 104 mmol/L (98-107); Creatinine, Serum 0.62 mg/dL (0.55-1.02); EST Glomerular Filtration Rate 102 mL/min (>60); Est Glom Filt Rate - Afr Amer 124 mL/min (>60); Estimated Creatinine Clearance 57.05 ml/min; Glucose 96 mg/dL (74-106); Potassium 3.8 mmol/L (3.5-5.1); Sodium Level 139 mmol/L (136-145)
[2020-02-04 06:48] VITALS: PULSE 58
--- NOTE | 2020-02-04 07:21 | PCM.PN.HOSP ---
Patient Problems: Active and Suspected Problems New onset atrial fibrillation (Acute) Elevated troponin (Acute) Urinary tract infection (Acute) Atrial fibrillation with RVR (Acute) Objective: GENERAL: cooperative HEENT: Atraumatic; EYES; Anicteric, Normal Conjunctiva NECK; supple, normal thyroid, RESPIRATORY: Diminished to auscultation CARDIOVASCULAR: Regular S1 S2, GI: soft, normoactive bowel sounds, : No Renal angle tenderness; EXTREMITIES: No edema, no clubbing, MUSCULOSKELETAL: no muscle waisting NEURO: Awake; no lateralizing signs. SKIN: No Rash PSYCH; Flat affect Vitals/I&O's: Vital Signs Temp Pulse Resp BP Pulse Ox 98.1 F 56 L 16 127/66 H 96 02/04/20 04:30 02/04/20 04:30 02/04/20 04:30 02/04/20 04:30 02/04/20 04:30 Oxygen Flow Rate (L/min) 2 Oxygen Delivery Method Room Air Weight: 96.6 kg Body Mass Index (BMI) 31.4 Intake and Output for Last 24 Hours 02/02/20 02/03/20 02/04/20 23:59 23:59 23:59 Intake Total 250 / 450 1574.25 / 1574.25 240 / 240 Output Total 2000 / 3600 4000 / 4000 600 / 600 Balance -1750 / -3150 -2425.75 / -2425.75 -360 / -360 Microbiology Past 72 Hours 01/31/20 12:45 Urine, Clean Catch Urine Culture - Final Mixed Gram Pos & Gram Neg Org 01/31/20 17:41 Mucosa - Nasopharyngeal Respiratory Panel (PCR) - Final Laboratory Results 02/04/20 05:41: WBC 4.2 L, RBC 4.08 L, Hgb 11.5 L, Hct 34.8 L, MCV 85.3, MCH 28.2, MCHC 33.0, RDW Std Deviation 41.7, RDW Coeff of Kesha 13.4, Plt Count 240, MPV 10.3 02/04/20 05:41: Sodium 139, Potassium 3.8, Chloride 104, Carbon Dioxide 28.0, Anion Gap 7, BUN 9, Creatinine 0.62, Estim Creat Clear Calc 57.05, Est GFR (MDRD) Af Amer 124, Est GFR (MDRD) Non-Af 102, BUN/Creatinine Ratio 14.5, Glucose 96, Calcium 8.4 L, Magnesium 2.0 Current Medications Acetaminophen (Tylenol) 650 mg PO Q6H PRN PRN PRN Reason: Pain Score 1-10/Temp > 100.7 F Al Hydroxide/Mg Hydroxide (Mylanta Ii) 30 ml PO Q6H PRN PRN PRN Reason: Gastric Burning Albuterol Sulfate (Ventolin Aerosols) 2.5 mg INHALATION Q2H PRN PRN PRN Reason: SOB/Wheezing Amiodarone HCl (Cordarone) 400 mg PO TID [facility], [facility] Stop: 02/05/20 22:01 Last Admin: 02/04/20 05:26 Dose: 400 mg Documented by: Amiodarone HCl (Cordarone) 200 mg PO DAILY [facility], [facility] Atorvastatin Calcium (Lipitor) 20 mg PO QHS [facility] Last Admin: 02/03/20 21:13 Dose: 20 mg Documented by: Citalopram Hydrobromide (Celexa) 40 mg PO DAILY [facility] Last Admin: 02/03/20 10:06 Dose: 40 mg Documented by: Dextrose (D50w Syringe) 0 gm IV X1 PRN; Protocol PRN Reason: Hypoglycemia Enoxaparin Sodium (Lovenox) 100 mg 1 mg/kg (100 mg) SC Q12 [facility], [facility] Last Admin: 02/03/20 21:13 Dose: 100 mg Documented by: Furosemide (Lasix) 20 mg PO DAILY [facility] Last Admin: 02/03/20 09:42 Dose: 20 mg Documented by: Glucagon () 1 mg IM .X1 PRN PRN Reason: Hypoglycemia Guaifenesin (Robitussin) 20 ml PO Q4H PRN PRN PRN Reason: COUGH Hydralazine HCl (Apresoline Iv) 10 mg IV Q4H PRN PRN PRN Reason: SBP > 160 Ceftriaxone Sodium (Rocephin) 1 gm in 50 mls @ 100 mls/hr IV Q24 [facility] Stop: 02/08/20 18:01 Last Infusion: 02/03/20 10:16 Dose: Infused Documented by: Sodium Chloride () 250 mls @ 15 mls/hr IV .[id number] PRN PRN Reason: Saline Flush Last Infusion: 02/03/20 10:34 Dose: 0 mls/hr Documented by: Sodium Chloride () 250 mls @ 15 mls/hr IV .[id number] PRN PRN Reason: Additional IVPB Infusion Magnesium Hydroxide (Milk Of Magnesia) 30 ml PO DAILY PRN PRN PRN Reason: Constipation Melatonin (Melatonin) 3 mg PO QHS PRN PRN PRN Reason: INSOMNIA Last Admin: 02/02/20 21:51 Dose: 3 mg Documented by: Metoprolol Tartrate (Lopressor (Beta Jeovany)) 50 mg PO BID [facility] Last Admin: 02/03/20 21:13 Dose: 50 mg Documented by: Morphine Sulfate () 2 mg IV Q3H PRN PRN PRN Reason: Pain Score 6-10/10 Nitroglycerin (Nitrostat) 0.4 mg SUBLINGUAL Q5M PRN PRN Reason: CARDIAC/CHEST PAIN Nutritional Formula (Lactose Free) (Ensure Enlive) 120 ml PO 4X/DAY [facility] Last Admin: 02/03/20 21:13 Dose: Not Given Documented by: Ondansetron HCl (Zofran) 4 mg IV Q8H PRN PRN PRN Reason: NAUSEA/VOMITING Oxycodone HCl (Oxyir) 5 mg PO Q4H PRN PRN PRN Reason: Pain Score 4-5/10 Last Admin: 02/01/20 17:55 Dose: 5 mg Documented by: Potassium Chloride (K-Dur) [facility] Prochlorperazine Edisylate (Compazine Iv) 5 mg IV Q4H PRN PRN PRN Reason: Breakthrough Nausea/Vomiting Psyllium Hydrophilic Mucilloid (Metamucil) 1 packet PO DAILY PRN PRN PRN Reason: Constipation Senna/Docusate Sodium (Senokot-S, Enedelia-Colace) 2 tablet PO BID PRN PRN PRN Reason: Constipation Sodium Chloride () 10 - 40 ml IV UD PRN PRN Reason: SALINE FLUSH Last Admin: 02/02/20 02:54 Dose: 10 ml Documented by: Throat Lozenges (Cepacol Sore Throat Lozenge) 1 lozenge MUCOUS MEM Q2H PRN PRN PRN Reason: SORE THROAT Venlafaxine HCl (Effexor Xr) 37.5 mg PO DAILY [facility] Last Admin: 02/03/20 10:06 Dose: 37.5 mg Documented by: STROKE Vital Signs/Narrative: Vital Signs Temp Pulse Resp BP Pulse Ox 02/04/20 04:30 98.1 F 56 L 16 127/66 H 96 Medical Necessity - Tobacco Use Smoking Status: Former smoker Tobacco Use: Non-smoker Assessment/Plan All Active Problems New onset atrial fibrillation (Acute) Elevated troponin (Acute) Urinary tract infection (Acute) Atrial fibrillation with RVR (Acute) Distal radius fracture, left (Acute) Patient is a 68-year-old lady presented with generalized weakness, cough low-grade fever and fatigue over the past couple of days. She was found to have abnormal urinalysis consistent with cystitis. Was also found to be in A. fib with RVR with elevated troponin admitted to the [facility] floor 1. Suspected acute viral syndrome ?Admitted to regular nursing floor currently undergoing evaluation for COVID-19 - Patient complains of having developed new onset cough and difficulty breathing and feeling tired. Repeat chest x-ray ordered and if suggestive of possible viral pneumonia will reorder echo with test which was apparently discontinued -02/02/2020 patient was not approved for COVID 19 testing since he did not meet criteria: Patient isolation subsequently discontinued transferred to the progressive care unit 2. Acute cystitis ?Patient started on Rocephin cultures sent ?02/02/2020: Urine cultures came back for only mixed organisms antibiotics subsequently discontinued 3. A. fib with RVR new onset. -Did receive Cardizem admitted to monitored bed. Patient was also noted to have elevated plan is for patient to undergo evaluation once medically stable -02/03/2020 patient flipping in and out of A. fib consultation was placed to cardiology patient was seen by Dr. Laird's notes and recommendations reviewed. 4. Acute congestive heart failure with preserved ejection fraction ?Echo obtained demonstrated EF of 65% patient started on Lasix with subsequent monitoring of electrolyte 4. Dyslipidemia ~patient is on statin therapy, continued at home dose 5. Obesity with BMI of 31.4 ?Weight loss advised 6. Depression with anxiety ?Patient is on Pristiq 7. DVT prophylaxis - Lovenox
[2020-02-04 08:35] VITALS: BP 128/67; PULSE 60; RESP 16; TEMP 36.9; O2SAT 93
[2020-02-04 08:38] VITALS: PULSE 60
[2020-02-04] MEDS: Enoxaparin 100 MG/ML Syringe SC (08:38)
[2020-02-04] MEDS: Citalopram 40 MG TABLET PO (08:38)
[2020-02-04] MEDS: Metoprolol Tartrate 50 MG Tablet PO (08:38)
[2020-02-04] MEDS: Venlafaxine XR 37.5 MG Capsule PO (08:38)
[2020-02-04] MEDS: Furosemide 20 MG Tablet PO (08:38)
[2020-02-04] MEDS: Ceftriaxone 1 GM/50 ML BAG IV (08:45)
[2020-02-04] MEDS: 0.9% Saline Lock 10 ML Syringe IV (08:46)
--- NOTE | 2020-02-04 08:53 | PN.CARD_ITS ---
Subjectve: Patient feeling much better today, no fevers, chills, or cough. Telemetry showed normal sinus rhythm. Objective: Vital Signs Temp Pulse Resp BP Pulse Ox 98.4 F 60 16 128/67 H 93 02/04/20 08:35 02/04/20 08:38 02/04/20 08:35 02/04/20 08:35 02/04/20 08:35 Oxygen Flow Rate (L/min) 2 Oxygen Delivery Method Room Air Weight: 212 lb 15.465 oz Body Mass Index (BMI) 31.4 Intake and Output for Last 24 Hours 02/02/20 02/03/20 02/04/20 23:59 23:59 23:59 Intake Total 250 / 450 1574.25 / 1574.25 240 / 240 Output Total 2000 / 3600 4000 / 4000 600 / 600 Balance -1750 / -3150 -2425.75 / -2425.75 -360 / -360 General: Awake, Alert, Oriented x 3 HEENT: PERRL, EOMI, Sclera Non Icteric Neck: Supple, Good ROM, No Lymph Node Enlargement Lungs: Clear to auscultation Cardiovascular: Regular Rhythm, Normal S1, Normal S2, No Murmurs, No Rubs, No Gallops Vascular: No Carotid Bruits, Normal Femoral Pulses, Normal Radial Pulses, Normal Dorsalis Pedal Pulse, Normal Posterior Tibial Pulses Abdomen: Bowel Sounds Present, Soft, Non Tender, No HSM, No Organomegaly Extremities: No Cyanosis, No Clubbing, No edema Neurological: No Focal Motor or Sensory Deficit 02/04/20 05:41: WBC 4.2 L, RBC 4.08 L, Hgb 11.5 L, Hct 34.8 L, MCV 85.3, MCH 28.2, MCHC 33.0, Plt Count 240, MPV 10.3 02/04/20 05:41: Sodium 139, Potassium 3.8, Chloride 104, Carbon Dioxide 28.0, Anion Gap 7, BUN 9, Creatinine 0.62, Est GFR (MDRD) Af Amer 124, Est GFR (MDRD) Non-Af 102, BUN/Creatinine Ratio 14.5, Glucose 96, Calcium 8.4 L, Magnesium 2.0 Rhythm: EKG: ECHO: Stress Test: Cardiac Cath: PCI: CT Surgery: Holter monitor: EPS: PPM: CXR: Chest CT Scan: Medical Necessity - Tobacco Use Smoking Status: Former smoker Tobacco Use: Non-smoker Assessment/Plan 1. Paroxysmal atrial fibrillation: The patient has had a recent viral illness, with newly discovered bilateral pleural effusions which may be a result of her recent viral illness. In addition she has had several episodes of palpitations and paroxysmal atrial fibrillation with rapid ventricular response. Her 2D echo with Doppler is as follows from this admission 02/01/2020: The estimated ejection fraction is 65 %. Stage 2 diastolic dysfunction. Mildly dilated right ventricle. The left atrium is moderately enlarged. Trivial mitral valve insufficiency. Trivial tricuspid valve insufficiency. Right ventricular systolic pressure estimated to be 32 mmHg. There is no comparison study available. I reviewed her CAT scan which demonstrates small bilateral pleural effusions and minimal pulmonary edema. No pulmonary embolism noted. Patient underwent stress echocardiogram on 02/03/2020 which was negative for inducible ischemia. Given the patient's paroxysmal atrial fibrillation and her inability to detected, I recommend that she be started on amiodarone loading 400 mg p.o. 3 times daily for 5 days followed by 200 mg a day. Her telemetry shows normal sinus rhythm. In addition she will continue metoprolol 50 mg p.o. twice daily. As the patient is unable to detect when she goes in and out of atrial fibrillation on several occasions, she may require at least short-term anticoagulation therapy with Eliquis per protocol. In addition I recommend that she be discharged on a 30-day event monitor to determine her atrial fibrillation burden. In addition I recommend an outpatient pulmonary function test as she was a previous smoker, and may have undiagnosed COPD. PFTs were also be necessary for baseline evaluation should amiodarone be needed going forward. In addition I would recommend discontinuation of her IV Lasix, and switching her to Lasix 20 mg p.o. daily, potassium chloride 10 mEq daily, and increasing her metoprolol to 50 mg p.o. twice daily. 2. Hyperlipidemia: Her LDL and HDL cholesterol are fairly well controlled. Continue present management. 3. Thank you very much for the opportunity to participate in the cardiac care of your patient. Patient may be discharged home with event monitor and follow- up with Dr. Laird going forward. Inpatient E&M: [id number] [facility] Hosp L2
--- NOTE | 2020-02-04 09:21 | PCM.DC ---
- Discharge Diagnoses Current Active Problems: Current Active and Chronic Problems New onset atrial fibrillation (Acute) Elevated troponin (Acute) Urinary tract infection (Acute) Atrial fibrillation with RVR (Acute) Depression (Chronic) HLD (hyperlipidemia) (Chronic) You will use the following diet at home:: Calorie/Carbohydrate Controlled (specify 1200, 1400, etc), Cardiac Discharge Activity: Return to Normal Activity Call your doctor if you observe: Shortness of breath, Dizziness, Fainting spells, Chest pain Additional Instructions: Recommend establishing with pulmonary medicine for pulmonary function testing. Allergies/Adverse Reactions: Allergies Penicillins Allergy (Verified 01/31/20 11:17) Shortness of breath Medications to take at Discharge Desvenlafaxine Succinate [Pristiq] 50 mg PO DAILY 08/10/13 Citalopram Hydrobromide [Citalopram HBr] 40 mg PO DAILY 01/31/20 Rosuvastatin Calcium [Crestor] 10 mg PO QHS 01/31/20 Amiodarone HCl [Cordarone] 200 mg PO DAILY #30 tab 02/04/20 Amiodarone HCl [Cordarone] 400 mg PO TID 5 Days #15 tab 02/04/20 Apixaban [Eliquis] 5 mg PO BID #60 tab 02/04/20 Furosemide [Lasix] 20 mg PO DAILY #30 tab 02/04/20 Metoprolol Tartrate [Lopressor (beta gina)] 50 mg PO BID #60 tab 02/04/20 Potassium Chloride [K-Dur] 10 meq PO DAILYCM #30 tab 02/04/20 The following prescriptions were given: Amiodarone HCl [Cordarone] 400 mg PO TID 5 Days #15 tab Transmission Status: Pending to [facility] Amiodarone HCl [Cordarone] 200 mg PO DAILY #30 tab Transmission Status: Pending to [facility] Apixaban [Eliquis] 5 mg PO BID #60 tab Transmission Status: Pending to [facility] Potassium Chloride [K-Dur] 10 meq PO DAILYCM #30 tab Transmission Status: Pending to [facility] Furosemide [Lasix] 20 mg PO DAILY #30 tab Transmission Status: Pending to [facility] Metoprolol Tartrate [Lopressor (beta gina)] 50 mg PO BID #60 tab Transmission Status: Pending to [facility] Orders to be completed after discharge: 30-Day Event Recorder [[facility]] Location: None Selected Primary Care Physician: Genoveva Martell [NON-STAFF] - Please follow up with your Primary Care Physician in: 1 Week Test Results: Test results from this visit will be discussed in further detail at your follow-up appointment, if applicable. Please Follow Up With: Ramez Laird MD When: 2 Weeks Please Follow Up With: Iraida Bravo NP-C When: 2 Weeks Proposed Discharge Date: 02/04/20
--- NOTE | 2020-02-04 10:44 | CM.UR ---
Called [facility] pharmacy to check nicolasaquis cost. It will be $149.34 under her insurance plan. Gave her free 30 day supply and instructed her on cost. States that she cannot afford that. Instructed her to discuss with her provider on hospital follow up. explained she may need to switch to coumadin. Verb understanding. Ashish Dsouza RN,CCM.
--- NOTE | 2020-02-04 11:02 | DS.PCM_ITS ---
<Blanca Jacob - Last Filed: 02/04/20 11:22> Discharge Date and Diagnosis Date of Admission: 01/31/20 Date of Discharge: 02/04/20 - Primary Discharge Diagnosis Active and Suspected Problems 1. New onset atrial fibrillation with RVR 2. Acute CHF with preserved ejection fraction 3. Acute cystitis ruled out 4. Suspected acute viral syndrome 5. Hyperlipidemia 6. Obesity 7. Anxiety with depression - Secondary Discharge Diagnosis Chronic Problems Depression (Chronic) HLD (hyperlipidemia) (Chronic) Hospital Course and Treatment Imaging Results: Diagnostic Data Chest X-Ray 02/01/20 10:24 IMPRESSION: Increased markings at the lung bases worse on the left side as compared to prior study. Follow-up is recommended. Electronically Signed: Isac Taveras, at 12:15 EDT , Service support , Chest CT 02/02/20 07:58 IMPRESSION: Findings suggestive of a mild degree of CHF with superimposed bibasilar atelectasis and/or infiltrates and bilateral pleural effusions slightly worse on the right side. Electronically Signed: Isac Taveras, at 9:10 EDT , Service support , Dr. Laird- Cardiology Operations: None Procedures: 2-D Echocardiogram, Stress test Summary of Care Provided: The patient is a 68 year old F admitted 01/31/2020 due to malaise. 1. New onset atrial fibrillation with RVR-cardiology consulted during admission. Patient underwent stress echo which was negative for ischemia. Echocardiogram demonstrates EF 65%, stage II diastolic dysfunction. Patient initiated on amiodarone and will continue loading dose 400 mg 3 times daily for 5 days followed by 200 mg daily. She will also continue metoprolol 50 mg twice daily. 30-day event monitor ordered at discharge to further assess atrial fibrillation burden. Discharged on Eliquis 5 mg twice daily. Patient will need further evaluation by cardiology as outpatient to determine if long-term anticoagulation is necessary. Given smoking history, recommend establishing with pulmonary medicine for pulmonary function testing on an outpatient basis. Follow-up with primary care physician in 1 week. Follow-up with cardiology, Dr. Laird in 2 weeks. 2. Acute CHF with preserved ejection fraction-echo per above. Discharged on Lasix 20 mg daily with potassium supplementation. 3. Acute cystitis ruled out-urine culture with mixed contaminants. Further antibiotics discontinued. 4. Suspected acute viral syndrome-patient with maculopapular rash and upper respiratory symptoms. Respiratory panel negative. Did not meet criteria for Covid 19 testing. Symptoms improved. Continue supportive treatment. 5. Hyperlipidemia-continue statin. 6. Obesity- encouraged diet and lifestyle modifications. 7. Anxiety with depression-continue home citalopram regimen. Patient seen and examined prior to discharge. Physical assessment as noted below. Patient is stable for discharge with follow up recommendations as noted above. This patient was seen by ARNALDO Kee under the supervision of Dr. Bentley. - Physical Exam Vitals/I&O's: Vital Signs Temp Pulse Resp BP Pulse Ox 98.4 F 60 16 128/67 H 93 02/04/20 08:35 02/04/20 08:38 02/04/20 08:35 02/04/20 08:35 02/04/20 08:35 Oxygen Flow Rate (L/min) 2 Oxygen Delivery Method Room Air Weight: 212 lb 15.465 oz Body Mass Index (BMI) 31.4 Intake and Output for Last 24 Hours 02/02/20 02/03/20 02/04/20 23:59 23:59 23:59 Intake Total 250 / 450 1574.25 / 1574.25 290 / 290 Output Total 2000 / 3600 4000 / 4000 600 / 600 Balance -1750 / -3150 -2425.75 / -2425.75 -310 / -310 General: Alert, Oriented x3, Cooperative HEENT: Atraumatic, PERRLA, EOMI, Normocephalic Neck: Supple, No JVD, Negative Carotid Bruits Lungs: Clear to auscultation, Normal air movement Cardiovascular: Regular rate, No murmurs Abdomen: Bowel Sounds Present, Soft, Non Tender Extremities: No edema, Capillary Refill Less than 3 Seconds Skin: No rashes, No breakdown Musculoskeletal: No Tenderness to Palpation of Joints or Extremities Neurological: Cranial nerves II-XII grossly intact Psych/Mental Status: Normal Affect, Appropriate Microbiology Past 72 Hours 01/31/20 12:45 Urine, Clean Catch Urine Culture - Final Mixed Gram Pos & Gram Neg Org 01/31/20 17:41 Mucosa - Nasopharyngeal Respiratory Panel (PCR) - Final Laboratory Results 02/04/20 05:41: WBC 4.2 L, RBC 4.08 L, Hgb 11.5 L, Hct 34.8 L, MCV 85.3, MCH 28.2, MCHC 33.0, RDW Std Deviation 41.7, RDW Coeff of Kesha 13.4, Plt Count 240, MPV 10.3 02/04/20 05:41: Sodium 139, Potassium 3.8, Chloride 104, Carbon Dioxide 28.0, Anion Gap 7, BUN 9, Creatinine 0.62, Estim Creat Clear Calc 57.05, Est GFR (MDRD) Af Amer 124, Est GFR (MDRD) Non-Af 102, BUN/Creatinine Ratio 14.5, Glucose 96, Calcium 8.4 L, Magnesium 2.0 Current Medications Acetaminophen (Tylenol) 650 mg PO Q6H PRN PRN PRN Reason: Pain Score 1-10/Temp > 100.7 F Al Hydroxide/Mg Hydroxide (Mylanta Ii) 30 ml PO Q6H PRN PRN PRN Reason: Gastric Burning Albuterol Sulfate (Ventolin Aerosols) 2.5 mg INHALATION Q2H PRN PRN PRN Reason: SOB/Wheezing Amiodarone HCl (Cordarone) 400 mg PO TID REPLACED BY [facility] Stop: 02/05/20 22:01 Last Admin: 02/04/20 05:26 Dose: 400 mg Documented by: Amiodarone HCl (Cordarone) 200 mg PO DAILY REPLACED BY [facility] Atorvastatin Calcium (Lipitor) 20 mg PO QHS REPLACED BY [facility] Last Admin: 02/03/20 21:13 Dose: 20 mg Documented by: Citalopram Hydrobromide (Celexa) 40 mg PO DAILY REPLACED BY [facility] Last Admin: 02/04/20 08:38 Dose: 40 mg Documented by: Dextrose (D50w Syringe) 0 gm IV X1 PRN; Protocol PRN Reason: Hypoglycemia Enoxaparin Sodium (Lovenox) 100 mg 1 mg/kg (100 mg) SC Q12 REPLACED BY [facility] Last Admin: 02/04/20 08:38 Dose: 100 mg Documented by: Furosemide (Lasix) 20 mg PO DAILY REPLACED BY [facility] Last Admin: 02/04/20 08:38 Dose: 20 mg Documented by: Glucagon () 1 mg IM .X1 PRN PRN Reason: Hypoglycemia Guaifenesin (Robitussin) 20 ml PO Q4H PRN PRN PRN Reason: COUGH Hydralazine HCl (Apresoline Iv) 10 mg IV Q4H PRN PRN PRN Reason: SBP > 160 Ceftriaxone Sodium (Rocephin) 1 gm in 50 mls @ 100 mls/hr IV Q24 REPLACED BY [facility] Stop: 02/08/20 18:01 Last Infusion: 02/04/20 09:19 Dose: Infused Documented by: Sodium Chloride () 250 mls @ 15 mls/hr IV .[id number] PRN PRN Reason: Saline Flush Last Infusion: 02/04/20 09:15 Dose: 15 mls/hr Documented by: Sodium Chloride () 250 mls @ 15 mls/hr IV .[id number] PRN PRN Reason: Additional IVPB Infusion Magnesium Hydroxide (Milk Of Magnesia) 30 ml PO DAILY PRN PRN PRN Reason: Constipation Melatonin (Melatonin) 3 mg PO QHS PRN PRN PRN Reason: INSOMNIA Last Admin: 02/02/20 21:51 Dose: 3 mg Documented by: Metoprolol Tartrate (Lopressor (Beta Jeovany)) 50 mg PO BID REPLACED BY [facility] Last Admin: 02/04/20 08:38 Dose: 50 mg Documented by: Morphine Sulfate () 2 mg IV Q3H PRN PRN PRN Reason: Pain Score 6-10/10 Nitroglycerin (Nitrostat) 0.4 mg SUBLINGUAL Q5M PRN PRN Reason: CARDIAC/CHEST PAIN Nutritional Formula (Lactose Free) (Ensure Enlive) 120 ml PO 4X/DAY REPLACED BY [facility] Last Admin: 02/04/20 08:39 Dose: Not Given Documented by: Ondansetron HCl (Zofran) 4 mg IV Q8H PRN PRN PRN Reason: NAUSEA/VOMITING Oxycodone HCl (Oxyir) 5 mg PO Q4H PRN PRN PRN Reason: Pain Score 4-5/10 Last Admin: 02/01/20 17:55 Dose: 5 mg Documented by: Potassium Chloride (K-Dur) 10 meq PO DAILYCM REPLACED BY [facility] Last Admin: 02/04/20 08:38 Dose: 10 meq Documented by: Prochlorperazine Edisylate (Compazine Iv) 5 mg IV Q4H PRN PRN PRN Reason: Breakthrough Nausea/Vomiting Psyllium Hydrophilic Mucilloid (Metamucil) 1 packet PO DAILY PRN PRN PRN Reason: Constipation Senna/Docusate Sodium (Senokot-S, Enedelia-Colace) 2 tablet PO BID PRN PRN PRN Reason: Constipation Sodium Chloride () 10 - 40 ml IV UD PRN PRN Reason: SALINE FLUSH Last Admin: 02/04/20 08:46 Dose: 10 ml Documented by: Throat Lozenges (Cepacol Sore Throat Lozenge) 1 lozenge MUCOUS MEM Q2H PRN PRN PRN Reason: SORE THROAT Venlafaxine HCl (Effexor Xr) 37.5 mg PO DAILY REPLACED BY [facility] Last Admin: 02/04/20 08:38 Dose: 37.5 mg Documented by: Discharge Diet: Low fat/ Low Cholesterol Discharge Activity: Return to Normal Activity Call your doctor if you observe: Shortness of breath, Dizziness, Fainting spells, Chest pain Home Medications: Medications to take at Discharge Desvenlafaxine Succinate [Pristiq] 50 mg PO DAILY 08/10/13 Citalopram Hydrobromide [Citalopram HBr] 40 mg PO DAILY 01/31/20 Rosuvastatin Calcium [Crestor] 10 mg PO QHS 01/31/20 Amiodarone HCl [Cordarone] 200 mg PO DAILY #30 tab 02/04/20 Amiodarone HCl [Cordarone] 400 mg PO TID 5 Days #15 tab 02/04/20 Apixaban [Eliquis] 5 mg PO BID #60 tab 02/04/20 Furosemide [Lasix] 20 mg PO DAILY #30 tab 02/04/20 Metoprolol Tartrate [Lopressor (beta jeovany)] 50 mg PO BID #60 tab 02/04/20 Potassium Chloride [K-Dur] 10 meq PO DAILYCM #30 tab 02/04/20 Following Prescrptions Were Given to Patient: Amiodarone HCl [Cordarone] 400 mg PO TID 5 Days #15 tab Transmission Status: Received by [facility] Amiodarone HCl [Cordarone] 200 mg PO DAILY #30 tab Transmission Status: Received by [facility] Apixaban [Eliquis] 5 mg PO BID #60 tab Transmission Status: Received by [facility] Potassium Chloride [K-Dur] 10 meq PO DAILYCM #30 tab Transmission Status: Received by [facility] Furosemide [Lasix] 20 mg PO DAILY #30 tab Transmission Status: Received by [facility] Metoprolol Tartrate [Lopressor (beta jeovany)] 50 mg PO BID #60 tab Transmission Status: Received by [facility] Other Amb Orders: 30-Day Event Recorder [[facility]] Location: None Selected Primary Care Physician: Genoveva Martell [NON-STAFF] - Please follow up with your Primary Care Physician in: 1 Week Please Follow Up With: Ramez Laird MD When: 2 Weeks Please Follow Up With: Iraida Bravo NP-C When: 2 Weeks Disposition: Home Minutes spent on discharge:: 35 Patient Condition:: Stable Medical Necessity - Tobacco Use Smoking Status: Former smoker Tobacco Use: Non-smoker Meaningful Use Info Meaningful Use Diagnoses (Choose all that apply): CHF - CHF GREY/ARB ordered at discharge?: Yes Reason GREY/ARB not ordered?: Drug Interaction Documented LVEF (%): 65 <Tariq Bentley - Last Filed: 02/04/20 13:11> Discharge Date and Diagnosis - Secondary Discharge Diagnosis Chronic Problems Depression (Chronic) HLD (hyperlipidemia) (Chronic) Hospital Course and Treatment Summary of Care Provided: This patient was seen in conjunction with ARNALDO Kee . I have independently interviewed and examined the patient and reviewed pertinent historical, laboratory, and other data. Please refer to ARNALDO Kee note for details of this patient's presentation, findings, and recommendations. I have reviewed ARNALDO Kee note and concur with documented findings. In brief, patient is a 68-year-old lady who was admitted with progressive generalized weakness and assessment of acute viral syndrome was made. Patient hospital stay complicated by new onset A. fib with RVR as well as acute congestive heart failure with preserved ejection fraction. Patient was admitted to monitored bed and managed per protocol Hospital stay: As documented above - Physical Exam Vitals/I&O's: Vital Signs Temp Pulse Resp BP Pulse Ox 98.4 F 60 16 128/67 H 93 02/04/20 08:35 02/04/20 08:38 02/04/20 08:35 02/04/20 08:35 02/04/20 08:35 Oxygen Flow Rate (L/min) 2 Oxygen Delivery Method Room Air Weight: 96.6 kg Body Mass Index (BMI) 31.4 Intake and Output for Last 24 Hours 02/02/20 02/03/20 02/04/20 23:59 23:59 23:59 Intake Total 250 / 450 1574.25 / 1574.25 290 / 290 Output Total 2000 / 3600 4000 / 4000 600 / 600 Balance -1750 / -3150 -2425.75 / -2425.75 -310 / -310 Microbiology Past 72 Hours 01/31/20 12:45 Urine, Clean Catch Urine Culture - Final Mixed Gram Pos & Gram Neg Org Laboratory Results 02/04/20 05:41: WBC 4.2 L, RBC 4.08 L, Hgb 11.5 L, Hct 34.8 L, MCV 85.3, MCH 28.2, MCHC 33.0, RDW Std Deviation 41.7, RDW Coeff of Kesha 13.4, Plt Count 240, MPV 10.3 02/04/20 05:41: Sodium 139, Potassium 3.8, Chloride 104, Carbon Dioxide 28.0, Anion Gap 7, BUN 9, Creatinine 0.62, Estim Creat Clear Calc 57.05, Est GFR (MDRD) Af Amer 124, Est GFR (MDRD) Non-Af 102, BUN/Creatinine Ratio 14.5, Glucose 96, Calcium 8.4 L, Magnesium 2.0 Inpatient E&M: [id number] Disch Hosp
== END 2020-02-04 11:08 | disposition home or self-care (01) | DRG 310 ==
LOC: ED 13:19 → PCU 13:32 → MS2 15:06 → PCU 02-02 11:30
PROVIDERS: Internal Medicine; Admitting Provider Family Medicine; Emergency Provider Emergency Medicine; PCP Student in an Organized Health Care Education/Training Program; Referring Provider Family Medicine; Visit Provider Internal Medicine
DX: I48.0 Paroxysmal atrial fibrillation (principal); E78.5 Hyperlipidemia, unspecified; E66.9 Obesity, unspecified; F41.8 Other specified anxiety disorders; B09 Unspecified viral infection characterized by skin and mucous membrane lesions; Z79.899 Other long term (current) drug therapy; Z87.891 Personal history of nicotine dependence; Z68.33 Body mass index [BMI] 33.0-33.9, adult; L50.9 Urticaria, unspecified; R74.0 Nonspecific elevation of levels of transaminase and lactic acid dehydrogenase [LDH]
CPT/HCPCS: 36415; 71045; 71250; 80048; 80053; 80061; 81001; 83735; 84100; 84443; 84484; 85025; 85027; 87086; 87088; 87633; 87804; 87807; 93005; 93017; 93306; 93350; 99285; J7030; J7050; Q9957; A4216; C8928; J1940

== ENCOUNTER 2020-12-06 14:30 | Outpatient (RCR) | payer MEDICARE, OTHER, SELFPAY ==
[2020-10-22 13:37] VITALS: BMI 33.0
--- NOTE | 2020-11-23 12:15 | HP.OTEVAL_ITS ---
Patient's Visit Information OUSMANE RODRIGUEZ is a 70 year old F, referred to Occupational Therapy by Dr. 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 Date of Evaluation: 11/21/20 Occupational Therapist: Subha Retana, SKYLA/Natasha, CHT - Subjective This 70 year old female was seen for OT eval with dx of unilateral primary osteoarthritis of first carpometacarpal joint- right hand. Pt states she struggled with right hand pain for about 15 years. Pt states she is limited with ROM and use of her right hand with ADLs and IADls. - Pain right hand 2 Pain Intensity Range: 1, 5 - ROM Wrist: right 40/20 left 80/55 CMC: right 5 left 25 MP: right 20 left 60 IP: right 10 left 65 Radial Abduction: right 30 left 50 - Strength Real Estate Broker Associate: right not tested left 45# Lateral Pinch: right not tested left 6# Tripod Pinch: right not tested left 6# - Sensation Sensation Comments: around incision - Quick DASH-Disab of Arm,Shoulder& Hand Quick DASH Score: 84.0900 - Goals Comment: Dr. Duran cmc arthroplasty protocol. Goal:Daily scar massage when approriate: Yes Goal:ROM equal to unaffected hand: Yes Goal:Real Estate Broker Associate/Pinch strength at least 75% of unaffected hand: Yes Goal:No pain with affected hand use: Yes Goal:Full use of affected hand in daily activities including: Yes Goal:Decrease scar hypersensitivity: Yes - Rehabilitation General Assessment: Pt arrives 6 weeks s/p right thumb basal joint arthroplasty, abductor pollicis longus tenodesis, Flexor carpi radialis tendon transfer, intrinsic release right thumb. right wrist extensor tenosynovectomy, right long finger trigger finger release. Pt demo with limited right wrist, digit ROM limited strength and use of right hand with ADLs and IADLs. Pt would benefit from skilled OT services 1-2x week for 8 weeks. Today therapist ed. pt on dx and sx protocol used by Dr. Duran. Pt demo understanding and agree to POC. Rehabilitation Potential: Good - Anticipated Interventions A/AAROM/PROM, Strengthening, Edema Control, Scar Care, Triggerpoint Release, Desensitization, Modalities, Orthoses, Joint Protection/Energy Conservation, Ergonomic Education, Fine Motor Coord/Manav - Visit Plan Frequency: 1-2x /Week Duration: 2 Months General Plan: 2-5 weeks thermoplastic thumb spica orthosis, edema reduction, scar mtg, short arc wrist motion to comfort. 3 weeks Begin MP thumb flexion with CMC supported. 5 weeks Full wrist AROM, begin CMC motion. 7 weeks Philippe pee or comfort cool orthosis, PROM if needed (wrist &thumb). strengthening as comfort allows. D/C orthoses as comfort allows TEXT: Thank you for the opportunity to evaluate your patient. For Medicare and Medicare HMO plans, please review the plan of care and approve it. It will need to be FAXED BACK to us at [phone] for Medicare purposes. Please let me know if there are questions or concerns regarding this plan of care. Physician Signature: Date:
--- NOTE | 2021-02-21 09:48 | HP.OT.NRP ---
OUSMANE RODRIGUEZ was seen in my office for initial evaluation on 11/21/20. The following Plan of Care was established for this patient: Initial Frequency: 1-2x /Week Initial Duration: 2 Months Plan: cont with dr. Duran [facility] [place] protocol Anticipated Interventions: A/AAROM/PROM, Strengthening, Edema Control, Scar Care, Triggerpoint Release, Desensitization, Modalities, Orthoses, Joint Protection/Energy Conservation, Ergonomic Education, Fine Motor Coord/Manav This patient was last seen in our office 12/06/20. Pertinent comments regarding their Occupational therapy will appear below: PT was seen for 2 OT visits following CMC arthroplasty- pt has not scheduled further OT services at this time and due to lapse in services pt d/c. At this point I will be discontinuing this patient from occupational therapy. I would be happy to see this patient again in the future if found appropriate by the physician. Thank you! Subha Retana, OTR/L, CHT
== END 2020-12-06 19:00 | disposition home or self-care (01) ==
LOC: OT 14:30
PROVIDERS: PCP Student in an Organized Health Care Education/Training Program; Referring Provider Orthopaedic Surgery; Visit Provider Orthopaedic Surgery
DX: M18.11 Unilateral primary osteoarthritis of first carpometacarpal joint, right hand (principal)
CPT/HCPCS: 97110; 97166; 97530

== ENCOUNTER → 2021-11-05 12:08 | Outpatient (CLI) | payer MEDICARE, OTHER, SELFPAY | PROVIDERS: PCP Student in an Organized Health Care Education/Training Program | DX: I48.0 Paroxysmal atrial fibrillation (principal); R07.9 Chest pain, unspecified; R06.02 Shortness of breath | CPT/HCPCS: 93225; 93226 ==

== ENCOUNTER 2022-01-30 15:04 | Outpatient (CLI) | payer MEDICARE, OTHER, SELFPAY ==
[2022-01-30 15:30] LABS: Absolute Lymphocyte Count 2.07 X10^3/uL (0.83-4.51); Absolute Neutrophil Count 3.1 X10^3/uL (2.0-7.7); Basophil# 0.02 X10^3/uL; Basophil% 0.3 % (0-1); Eosinophils% 6.7 % (0-5); Hematocrit 40.5 % (37-47); Hemoglobin 13.7 g/dL (12.0-15.0); Lymphocyte # 2.07 X10^3/ul (0.83-4.51); Lymphocyte % 34.9 % (19-41); Mean Corp Hgb Conc 33.8 g/dL (32-36); Mean Corpuscular Hgb 29.6 pg (27.0-32.0); Mean Corpuscular Volume 87.5 fL (81-99); Mean Platelet Vol. 9.7 fl (6.2-12.0); Monocyte# 0.34 X10^3/uL; Monocyte% 5.7 % (0-10); NRBC Flagged by Analyzer 0 % (0-5); Neutrophil # 3.09 X10^3/uL (2.7-7.7); Neutrophil % 52.2 % (47-70); Platelet Count 257 K/mm3 (150-450); RBC Distribution Width CV 14.2 % (11.6-14.6); RBC Distribution Width SD 45.4 fl (35.1-43.9); Red Blood Count 4.63 M/mm3 (4.2-5.4); White Blood Count 5.9 K/mm3 (4.4-11.0)
[2022-01-30 15:43] LABS: Erythrocyte Sedimentation Rate 13 mm/hr (0-30)
[2022-01-30 16:05] LABS: ALB/GLOB Ratio 1.2 RATIO (0.9-2.4); AST(SGOT) 22 U/L (15-37); Alanine Aminotransfer ALT/SGPT 34 U/L (13-56); Albumin, Serum 4.1 g/dL (3.2-5.0); Alkaline Phosphatase 105 U/L (45-117); Anion Gap 4 (5-15); BUN 14 mg/dL (7-18); BUN/Creat Ratio 16.3 RATIO (10-20); Bilirubin, Direct 0.08 mg/dL (0.00-0.30); CRP < 2.90 mg/L (0.0-3.0); Calcium,Total 9.3 mg/dL (8.5-10.1); Chloride 105 mmol/L (98-107); Creatinine, Serum 0.86 mg/dL (0.55-1.02); EST Glomerular Filtration Rate 69 mL/min (>60); Est Glom Filt Rate - Afr Amer 84 mL/min (>60); Globulin 3.5 g/dL (2.2-4.2); Glucose 103 mg/dL (74-106); Potassium 4.2 mmol/L (3.5-5.1); Protein, Total 7.6 g/dL (6.4-8.2); Sodium Level 137 mmol/L (136-145)
[2022-02-01 16:09] LABS: Anti-Centromere B Ab <0.2 AI (0.0-0.9); Anti-Chromatin <0.2 AI (0.0-0.9); Anti-Jo <0.2 AI (0.0-0.9); Anti-Scleroderma-70 AB <0.2 AI (0.0-0.9); RNP Ab 1.4 AI (0.0-0.9); SJOGREN'S Anti-SS-A test 0.2 AI (0.0-0.9); SJOGREN'S Anti-SS-B test < 0.2 AI (0.0-0.9); Smith Ab <0.2 AI (0.0-0.9)
[2022-02-02 09:39] LABS: Anti-dsDNA Ab 3 IU/mL (0-9)
[2022-02-03 16:09] LABS: Endomysial Antibody IgA Negative (Negative)
[2022-02-03 21:22] LABS: Immunoglobulin A 121 mg/dL (87-352); t-Transglutaminase IgA <2 U/mL (0-3)
== END 2022-01-30 23:59 | disposition home or self-care (01) ==
LOC: LAB 15:05
PROVIDERS: PCP Student in an Organized Health Care Education/Training Program; Visit Provider Nurse Practitioner Adult Health
DX: K52.9 Noninfective gastroenteritis and colitis, unspecified (principal); S52.502A Unspecified fracture of the lower end of left radius, initial encounter for closed fracture
CPT/HCPCS: 36415; 80053; 82248; 82784; 83516; 85025; 85652; 86140; 86225; 86235; 86255

== ENCOUNTER → 2023-02-18 | Outpatient (CLI) | payer MEDICARE, SELFPAY ==
--- NOTE | 2023-02-18 10:43 | RAD_ITS ---
STUDY: X-RAY CHEST REASON FOR EXAM: Female, 72 years old. Fever and cough TECHNIQUE: PA and lateral views of the chest. COMPARISON: 02/01/2020 FINDINGS: The lungs are clear and expanded. There is no demonstrated pleural abnormality. Normal size heart. Normal mediastinum and morelia. Normal visualized pulmonary arteries. Normal visualized aortic arch and descending thoracic aorta. Normal visualized thoracic spine. Normal visualized ribs, clavicles, and shoulders. There is no demonstrated abnormality of the visualized soft tissue structures of the upper abdomen. RAD/Chest PA and Lateral IMPRESSION: Normal x-ray examination of the chest. Electronically Signed: Kwasi Gan MD at 11:36 EDT ,
[2023-02-18 11:28] LABS: Absolute Neutrophil Count 2.2 X10^3/uL (2.0-7.7); Basophil# 0.03 X10^3/uL; Basophil% 0.7 % (0-1); Eosinophil# 0.12 X10^3/uL; Eosinophils% 2.8 % (0-5); Hematocrit 41.5 % (37-47); Hemoglobin 13.7 g/dL (12.0-15.0); Lymphocyte % 36.9 % (19-41); Mean Corpuscular Volume 87.9 fL (81-99); Monocyte# 0.37 X10^3/uL; Monocyte% 8.5 % (0-10); NRBC Flagged by Analyzer 0 % (0-5); Neutrophil # 2.21 X10^3/uL (2.7-7.7); Neutrophil % 50.9 % (47-70); Platelet Count 255 K/mm3 (150-450); RBC Distribution Width CV 14.2 % (11.6-14.6); RBC Distribution Width SD 45.3 fl (35.1-43.9); Red Blood Count 4.72 M/mm3 (4.2-5.4); White Blood Count 4.3 K/mm3 (4.4-11.0)
[2023-02-22 08:29] LABS: Immunoglobulin E 27 IU/mL (6-495)
[2023-02-26 03:07] LABS: Alternaria tenuis <0.10 kU/L (Class 0); Ash, White <0.10 kU/L (Class 0); Aspergillus fumigatus <0.10 kU/L (Class 0); Bermuda Grass <0.10 kU/L (Class 0); Birch <0.10 kU/L (Class 0); Black Walnut <0.10 kU/L (Class 0); Cat Hair / Dander,Stand <0.10 kU/L (Class 0); Cedar, Mountain <0.10 kU/L (Class 0); Cladosporium herbarum <0.10 kU/L (Class 0); Cockroach, American <0.10 kU/L (Class 0); Cottonwood <0.10 kU/L (Class 0); D farinae Mite <0.10 kU/L (Class 0); D pteronyssinus <0.10 kU/L (Class 0); Dog Epithelia 0.38 kU/L (Class I); Elm, American White <0.10 kU/L (Class 0); Immunoglobulin E 22 IU/mL (6-495); Maple/Box Elder <0.10 kU/L (Class 0); Mouse Urine <0.10 kU/L (Class 0); Mulberry, White <0.10 kU/L (Class 0); Oak, White <0.10 kU/L (Class 0); Pecan <0.10 kU/L (Class 0); Penicillium Notatum <0.10 kU/L (Class 0); Pigweed, Rough <0.10 kU/L (Class 0); Ragweed, Short/Common <0.10 kU/L (Class 0); Russian Thistle <0.10 kU/L (Class 0); Sheep Sorrel <0.10 kU/L (Class 0); Sycamore, American <0.10 kU/L (Class 0); Timothy Grass <0.10 kU/L (Class 0)
== END | disposition home or self-care (01) ==
PROVIDERS: PCP Student in an Organized Health Care Education/Training Program; Visit Provider Internal Medicine
DX: G47.33 Obstructive sleep apnea (adult) (pediatric) (principal); R05.9 Cough, unspecified; J30.89 Other allergic rhinitis; J30.2 Other seasonal allergic rhinitis; Z99.89 Dependence on other enabling machines and devices; S52.502A Unspecified fracture of the lower end of left radius, initial encounter for closed fracture; T78.40XA Allergy, unspecified, initial encounter
CPT/HCPCS: 36415; 71046; 82785; 85025; 86003

== ENCOUNTER → 2023-03-06 | Outpatient (CLI) | payer MEDICARE, SELFPAY ==
--- NOTE | 2023-03-06 14:21 | PFTCOMP_ITS ---
COMPLETE PULMONARY FUNCTION TEST INTERPRETATION Brief HPI: Patient is a 72-year-old female, currently under the care of Dr. Zuniga, who presents to [facility] for complete pulmonary function tests secondary to diagnosis of cough. Respiratory therapist reports good effort and reproducible results. Interpretation: Forced expiration spirometry shows no large airways obstructive ventilatory defect with an FEV1 of 107% predicted. There is no significant bronchodilator response by strict ATS criteria. Spirograms are of good quality and plateau normally. The respiratory flow volume loop shows a normal pattern. Lung volumes by body plethysmography show an elevated total lung capacity at 7.01 L, 121% predicted. All other lung volumes are increased symmetrically. FRC and RV are elevated out of proportion. Lung volume measurements are consistent with hyperinflation and air-trapping. Diffusion capacity by carbon monoxide is normal at 99% predicted. The airway resistance is normal. No previous pulmonary function tests were available for review. Impression: These pulmonary function tests are grossly within normal limits
== END | disposition home or self-care (01) ==
LOC: PSN 10:44
PROVIDERS: PCP Student in an Organized Health Care Education/Training Program; Referring Provider Internal Medicine; Visit Provider Internal Medicine
DX: G47.33 Obstructive sleep apnea (adult) (pediatric) (principal); R05.9 Cough, unspecified; J30.89 Other allergic rhinitis; J30.2 Other seasonal allergic rhinitis; Z99.89 Dependence on other enabling machines and devices
CPT/HCPCS: 94060; 94726; 94729

== ENCOUNTER → 2023-03-31 | Outpatient (CLI) | payer MEDICARE, SELFPAY | END | disposition home or self-care (01) | PROVIDERS: PCP Student in an Organized Health Care Education/Training Program; Visit Provider Internal Medicine | DX: G47.33 Obstructive sleep apnea (adult) (pediatric) (principal) | CPT/HCPCS: 95811 ==